=== PATIENT | male | born 1960 | race Caucasian/White ===

== ENCOUNTER → 2017-06-23 | Outpatient (CLI) | payer BC ==
--- NOTE | 2017-07-01 09:21 | P.ARTDOP ---
Arterial Doppler LOWER EXTREMITY ARTERIAL DOPPLER: DATE OF SERVICE: 06/23/2017 Reason for study: Left leg pain. Doppler waveforms: Multiphasic bilaterally throughout. Pulse volume recording: Normal configuration. Pressure gradients: None. Ankle-brachial indices: Greater than 1 bilaterally. Toe pressures: 96 on the right, 87 on the left Impression: Normal study.
== END | disposition home or self-care (01) ==
LOC: RADUSWWP 07:32
PROVIDERS: ATTEND Internal Medicine
DX: M79.669 Pain in unspecified lower leg (principal)
CPT/HCPCS: 93923

== ENCOUNTER 2018-01-26 11:35 | Inpatient (IN) | payer BC ==
--- NOTE | 2018-01-26 12:52 | ED ---
General Adult HPI - General Chief complaint: Recheck/Abnormal Lab/Rx Stated complaint: Withdrawls, Vomiting Time Seen by Provider: 01/26/18 11:35 Source: patient, RN notes reviewed Mode of arrival: wheelchair Limitations: no limitations - History of Present Illness Initial comments: This is a 57-year-old male who presents emergency Department complaining of a headache. Patient has been weaning himself off of all of his pain medications over the last couple of weeks he is completely removed himself from those medications at this point in time. Patient comes in stating he started having headache yesterday and he woke up this morning and it was worse. Patient denies numbness or weakness. Patient denies any trauma. Patient states she's very nauseated has vomited 2 times. Patient denies any chest pain difficulty breathing or shortness of breath. Patient states she feels as though he needs to throw but can't now. Patient denies any abdominal pain patient states he does have back pain but it's no worse than his normal back pain. Patient states she's here now because of the headache and the nausea. - Related Data Home Medications Medication Instructions Recorded Confirmed Atorvastatin [Lipitor] 20 mg PO DAILY 02/09/16 01/26/18 Cholecalciferol [Vitamin D3] 2,000 units PO DAILY 02/09/16 01/26/18 Lisinopril-Hctz 20-12.5 mg 1 tab PO DAILY 02/09/16 01/26/18 [Zestoretic 20-12.5] Pantoprazole [Protonix] 40 mg PO DAILY 02/09/16 01/26/18 Rivaroxaban [Xarelto] 20 mg PO DAILY 02/09/16 01/26/18 clonazePAM [KlonoPIN] 0.5 mg PO DAILY 02/09/16 01/26/18 Naloxegol Oxalate [Movantik] 25 mg PO DAILY 01/26/18 01/26/18 Allergies Allergy/AdvReac Type Severity Reaction Status Date / Time morphine Allergy Unknown Unknown Verified 01/26/18 12:59 Review of Systems ROS Statement: Those systems with pertinent positive or pertinent negative responses have been documented in the HPI. ROS Other: All systems not noted in ROS Statement are negative. Past Medical History Past Medical History: Deep Vein Thrombosis (DVT), Hyperlipidemia, Hypertension Additional Past Medical History / Comment(s): Back problems History of Any Multi-Drug Resistant Organisms: None Reported Additional Past Surgical History / Comment(s): Back surgery x2 () Hx blood clot x2 () Past Anesthesia/Blood Transfusion Reactions: No Reported Reaction Past Psychological History: No Psychological Hx Reported Smoking Status: Former smoker Past Alcohol Use History: Rare Past Drug Use History: Opiates - Past Family History Father Family Medical History: Deep Vein Thrombosis (DVT) Additional Family Medical History / Comment(s): Triple Bypass in 2011 General Exam - General Exam Comments Initial Comments: GENERAL: Patient is well-developed and well-nourished. Patient is nontoxic and well- hydrated and is in moderate distress. ENT: Neck is soft and supple. No significant lymphadenopathy is noted. Oropharynx is clear. Moist mucous membranes. Neck has full range of motion without eliciting any pain. EYES: The sclera were anicteric and conjunctiva were pink and moist. Extraocular movements were intact and pupils were equal round and reactive to light. Eyelids were unremarkable. PULMONARY: Unlabored respirations. Good breath sounds bilaterally. No audible rales rhonchi or wheezing was noted. CARDIOVASCULAR: There is a regular rate and rhythm without any murmurs gallops or rubs. ABDOMEN: Soft and nontender with normal bowel sounds. No palpable organomegaly was noted. There is no palpable pulsatile mass. SKIN: Skin is clear with no lesions or rashes and otherwise unremarkable. NEUROLOGIC: Patient is alert and oriented x3. Cranial nerves II through XII are grossly intact. Motor and sensory are also intact. Normal speech, volume and content. Symmetrical smile. MUSCULOSKELETAL: Normal extremities with adequate strength and full range of motion. No lower extremity swelling or edema. No calf tenderness. LYMPHATICS: No significant lymphadenopathy is noted PSYCHIATRIC: Normal psychiatric evaluation. Limitations: no limitations Course Vital Signs 01/26/18 01/26/18 11:37 14:30 Temperature 98.1 F Pulse Rate 78 66 Respiratory 20 16 Rate Blood Pressure 109/89 144/66 O2 Sat by Pulse 98 99 Oximetry Medical Decision Making - Medical Decision Making EKG shows normal sinus rhythm at 68 bpm OH interval 186 QRS 102 QT intervals 46 QTC is 431. Patient's EKG shows no ST segment elevation or depression or T wave abnormalities are noted. CT of the brain shows no acute abnormality. Patient continues to be nauseated and vomiting occasionally and is a mild headache at this point time. I spoke with Dr. Grider he agreed to admit the patient for 23 hour observation. - Lab Data Result diagrams: 01/26/18 12:34 01/26/18 12:34 Lab Results 01/26/18 01/26/18 Range/Units 12:34 12:34 WBC 11.9 H (3.8-10.6) k/uL RBC 5.15 (4.30-5.90) m/uL Hgb 15.0 (13.0-17.5) gm/dL Hct 44.1 (39.0-53.0) % MCV 85.7 (80.0-100.0) fL MCH 29.2 (25.0-35.0) pg MCHC 34.1 (31.0-37.0) g/dL RDW 13.4 (11.5-15.5) % Plt Count 286 (150-450) k/uL Neutrophils % 83 % Lymphocytes % 12 % Monocytes % 4 % Eosinophils % 1 % Basophils % 0 % Neutrophils # 9.9 H (1.3-7.7) k/uL Lymphocytes # 1.4 (1.0-4.8) k/uL Monocytes # 0.4 (0-1.0) k/uL Eosinophils # 0.1 (0-0.7) k/uL Basophils # 0.0 (0-0.2) k/uL Sodium 137 (137-145) mmol/L Potassium 4.1 (3.5-5.1) mmol/L Chloride 101 (98-107) mmol/L Carbon Dioxide 22 (22-30) mmol/L Anion Gap 14 mmol/L BUN 7 L (9-20) mg/dL Creatinine 0.82 (0.66-1.25) mg/dL Est GFR (CKD-EPI)AfAm >90 (>60 ml/min/1.73 sqM) Est GFR (CKD-EPI)NonAf >90 (>60 ml/min/1.73 sqM) Glucose 112 H (74-99) mg/dL Calcium 9.9 (8.4-10.2) mg/dL Total Bilirubin 0.8 (0.2-1.3) mg/dL AST 30 (17-59) U/L ALT 29 (21-72) U/L Alkaline Phosphatase 80 (38-126) U/L Total Protein 7.8 (6.3-8.2) g/dL Albumin 4.5 (3.5-5.0) g/dL Disposition Clinical Impression: Cephalgia, Acute vomiting Disposition: ADMITTED IP TO THIS HOSP Referrals: Coco Grider MD [Primary Care Provider] - 1-2 days Time of Disposition: 16:22
[2018-01-26] MEDS ORDERED: HYDROmorphone 1 MG/ML 1 ML SYRINGE IVP STA ×2 (12:56→16:12)
[2018-01-26] MEDS: ONDANSETRON 4 MG/2 ML VIAL IVP STA ×2 (13:07→15:41)
[2018-01-26 13:14] LABS: Basophils % (A) 0 %; Eosinophils # (A) 0.1 k/uL (0-0.7); Eosinophils % (A) 1 %; HCT 44.1 % (39.0-53.0); Lymphocytes # (A) 1.4 k/uL (1.0-4.8); Lymphocytes % (A) 12 %; MCH 29.2 pg (25.0-35.0); MCHC 34.1 g/dL (31.0-37.0); MCV 85.7 fL (80.0-100.0); Mean Platelet Volume 6.9; Monocytes # (A) 0.4 k/uL (0-1.0); Monocytes % (A) 4 %; Neutrophils # (A) 9.9 k/uL (1.3-7.7); Neutrophils % (A) 83 %; Platelet Count 286 k/uL (150-450); RBC 5.15 m/uL (4.30-5.90); RDW 13.4 % (11.5-15.5); WBC 11.9 k/uL (3.8-10.6)
[2018-01-26] MEDS ORDERED: LORazepam 2 MG/ML INJ IV STA (13:22)
[2018-01-26 13:30] LABS: ALT 29 U/L (21-72); AST 30 U/L (17-59); Albumin 4.5 g/dL (3.5-5.0); Alkaline Phosphatase 80 U/L (38-126); Anion Gap 14 mmol/L; Blood Urea Nitrogen 7 mg/dL (9-20); Calcium 9.9 mg/dL (8.4-10.2); Carbon Dioxide 22 mmol/L (22-30); Chloride 101 mmol/L (98-107); Glucose 112 mg/dL (74-99); Potassium 4.1 mmol/L (3.5-5.1); Sodium 137 mmol/L (137-145); Total Bilirubin 0.8 mg/dL (0.2-1.3); Total Protein 7.8 g/dL (6.3-8.2)
--- NOTE | 2018-01-26 13:59 | CT ---
EXAMINATION TYPE: CT brain wo con DATE OF EXAM: 01/26/2018 COMPARISON: June 27, 2015 HISTORY: pain CT DLP: [address] of the brain was performed. The ventricles, basal cisterns and sulci overlying the cerebral convexities demonstrate mild enlargem ent. There is no evidence for intracranial hemorrhage or sulcal effacement. There is decreased attenuation about the periventricular white matter and deep white matter of both c erebral hemispheres, compatible with chronic small vessel ischemia. Differential diagnosis does inclu de demyelination. No mass effects are seen.No midline shift. Osseous calvarium is intact. If symptoms persist consider MRI. IMPRESSION: 1. Age related atrophic and chronic small vessel ischemic change without acute intracranial process s een at this time.
[2018-01-26] MEDS ORDERED: SODIUM CHLORIDE 0.9% 1,000 ML IV ONE ×2 (16:12→16:22)
[2018-01-26] MEDS ORDERED: LORazepam 2 MG/ML INJ IV PRN (16:24)
[2018-01-26] MEDS: HYDROcodone/APAP 5-325MG 1 EACH TAB PO PRN (18:31)
[2018-01-26] MEDS: ONDANSETRON 4 MG/2 ML VIAL IVP PRN (19:53)
[2018-01-26] MEDS: RIVAROXABAN 20 MG TAB PO SCH (19:54)
[2018-01-26] MEDS: HYDROmorphone 1 MG/ML 1 ML SYRINGE IVP PRN (22:53)
[2018-01-27] MEDS: ONDANSETRON 4 MG/2 ML VIAL IVP PRN ×2 (02:49→08:47)
[2018-01-27] MEDS: HYDROcodone/APAP 5-325MG 1 EACH TAB PO PRN ×3 (02:49→21:47)
[2018-01-27] MEDS: HYDROmorphone 1 MG/ML 1 ML SYRINGE IVP PRN ×2 (06:39→11:57)
[2018-01-27] MEDS ORDERED: ACETAMINOPHEN TAB 325 MG TAB PO PRN (08:41)
[2018-01-27] MEDS: PANTOPRAZOLE 40 MG TABLET PO SCH (08:49)
[2018-01-27] MEDS: LISINOPRIL-HCTZ 20-12.5 MG 1 EACH TAB PO SCH (08:50)
[2018-01-27] MEDS: RIVAROXABAN 20 MG TAB PO SCH (08:50)
[2018-01-27] MEDS: CHOLECALCIFEROL 1,000 UNIT TAB PO SCH (08:50)
[2018-01-27] MEDS: ATORVASTATIN 20 MG TAB PO SCH (08:51)
[2018-01-27] MEDS: clonazePAM 0.5 MG TAB PO SCH (08:51)
[2018-01-27] MEDS ORDERED: SCOPOLAMINE 1.5MG/72HR PATCH TRANSDERM ONE (11:45)
--- NOTE | 2018-01-27 13:47 | P.HPIM ---
History of Present Illness H&P Date: 01/27/18 Chief Complaint: Headache, vomiting This is a 57-year-old male patient of Dr. Grider with past history of chronic back pain with chronic use of Suboxone, DVT, hyperlipidemia, hypertension. Patient follows with pain clinic at [facility] and is currently on tapering dose to wean off Suboxone. He states that on Friday he wasn't feeling great and on Friday he felt worse but by yesterday he had a splitting headache along with nausea and vomiting. He states he feels like he is going to dehydration which she has had in the past. He came into [facility] emergency center for evaluation. He was given 2 L of IV fluid, IV Dilaudid and admitted to the observation unit where he was continued on IV Dilaudid and [place] along with Zofran. His home medications were resumed. Patient continued to have significant headache. He states pain medication last for about an hour to an hour and a half and he can sleep for about 20-30 minutes but then he wakes up and he has hiccups, nausea and headache. Scopolamine patch will be ordered. Patient will be monitored until he is able to maintain food and fluids without emesis. IV fluids will be switched to D5 half-normal saline with KCl. Review of Systems All systems: negative Constitutional: Reports fatigue, Reports poor appetite, Reports weakness, Denies chills, Denies fever, Denies lethargy, Denies malaise, Denies weight loss Eyes: denies blurred vision, denies pain Ears, nose, mouth and throat: Reports headache, Denies dysphagia, Denies sore throat, Denies vertigo Cardiovascular: Denies chest pain, Denies decreased exercise tolerance, Denies dyspnea on exertion, Denies edema, Denies leg edema, Denies lightheadedness, Denies shortness of breath, Denies syncope Respiratory: Denies cough, Denies cough with sputum, Denies dyspnea, Denies excessive sputum, Denies hemoptysis, Denies home oxygen, Denies wheezing Gastrointestinal: Reports loss of appetite, Reports nausea, Reports vomiting, Denies abdominal pain, Denies diarrhea, Denies melena Genitourinary: Denies dysuria, Denies urinary retention Musculoskeletal: Reports low back pain, Denies frequent falls, Denies myalgias Integumentary: Denies pruritus, Denies rash, Denies wounds Neurological: Denies numbness, Denies weakness Psychiatric: Denies anxiety, Denies depression Endocrine: Denies fatigue, Denies weight change Past Medical History Past Medical History: Deep Vein Thrombosis (DVT), Hyperlipidemia, Hypertension Additional Past Medical History / Comment(s): Chronic back pain and follows with [facility] pain clinic History of Any Multi-Drug Resistant Organisms: None Reported Additional Past Surgical History / Comment(s): Back surgery x3 (1989/1993/2016) Hx blood clot x2 (), temporary [place] filter placement and removal Past Anesthesia/Blood Transfusion Reactions: No Reported Reaction Past Psychological History: No Psychological Hx Reported Smoking Status: Former smoker Past Alcohol Use History: Rare Additional Past Alcohol Use History / Comment(s): She was a smoker of a pack per day for 11 years. He denies any medical marijuana, marijuana, street drug use. He drinks alcohol very rarely. He lives at home with his family. Past Drug Use History: Opiates - Past Family History Father Family Medical History: Deep Vein Thrombosis (DVT) Additional Family Medical History / Comment(s): Father is alive at age 83 with history of hypertension and coronary artery disease status post triple vessel CABG in 2011. Mother Additional Family Medical History / Comment(s): Mother is alive at age 79 with no major medical problems. Brother(s) Additional Family Medical History / Comment(s): Patient has 1 sister with no major medical problems. Patient does not have any brothers. Daughter(s) Additional Family Medical History / Comment(s): Patient has 4 children and 3 are healthy with no major medical problems. One daughter at age 22 has hypertension, fibromyalgia, chronic lymphedema, gastroesophageal reflux disease , irritable bowel syndrome, chronic back pain status post 2 back surgeries. Medications and Allergies Home Medications Medication Instructions Recorded Confirmed Type Atorvastatin [Lipitor] 20 mg PO DAILY 02/09/16 01/26/18 History Cholecalciferol [Vitamin D3] 2,000 units PO DAILY 02/09/16 01/26/18 History Lisinopril-Hctz 20-12.5 mg 1 tab PO DAILY 02/09/16 01/26/18 History [Zestoretic 20-12.5] Pantoprazole [Protonix] 40 mg PO DAILY 02/09/16 01/26/18 History Rivaroxaban [Xarelto] 20 mg PO DAILY 02/09/16 01/26/18 History clonazePAM [KlonoPIN] 0.5 mg PO DAILY 02/09/16 01/26/18 History Naloxegol Oxalate [Movantik] 25 mg PO DAILY 01/26/18 01/26/18 History HYDROcodone/APAP 5-325MG [[place] 1 tab PO Q6HR PRN 3 Days #12 tab 01/27/18 Rx 5-325] Allergies Allergy/AdvReac Type Severity Reaction Status Date / Time morphine Allergy Unknown Unknown Verified 01/26/18 12:59 Physical Exam Vitals: Vital Signs Temp Pulse Pulse Resp BP BP Pulse Ox 01/27/18 07:43 98.5 F 67 16 148/68 93 L 01/27/18 03:19 77 16 01/27/18 00:00 79 16 01/26/18 23:29 98.7 F 75 16 149/70 97 01/26/18 20:00 72 18 01/26/18 19:42 98.4 F 73 18 173/73 96 01/26/18 18:38 68 18 01/26/18 17:40 98.0 F 68 18 166/74 99 01/26/18 17:30 98.5 F 70 18 139/65 96 01/26/18 17:29 98.3 F 01/26/18 17:11 82 16 138/95 99 01/26/18 14:30 66 16 144/66 99 01/26/18 11:37 98.1 F 78 20 109/89 98 Intake and Output 01/26/18 01/27/18 01/27/18 22:59 06:59 14:59 Other: Voiding Method Toilet Toilet # Voids 1 Weight 120.2 kg 120.2 kg Gen: This is a 57-year-old male patient. He is in bed and appears to be somewhat uncomfortable. HEENT: Head is atraumatic, normocephalic. Pupils equal, round. Sclerae is anicteric. NECK: Supple. No JVD. No lymphadenopathy. No thyromegaly. LUNGS: Clear to auscultation. No wheezes or rhonchi. No intercostal retractions. HEART: Regular rate and rhythm. No murmur. ABDOMEN: Soft. Bowel sounds are present. No masses. No tenderness. EXTREMITIES: No pedal edema. No calf tenderness. NEUROLOGICAL: Patient is awake, alert and oriented x3. Cranial nerves 2 through 12 are grossly intact. Results CBC & Chem 7: 01/26/18 12:34 18 12:34 Labs: Abnormal Lab Results - Last 24 Hours (Table) 01/26/18 01/26/18 Range/Units 12:34 12:34 WBC 11.9 H (3.8-10.6) k/uL Neutrophils # 9.9 H (1.3-7.7) k/uL BUN 7 L (9-20) mg/dL Glucose 112 H (74-99) mg/dL Thrombosis Risk Factor Assmnt - DVT/VTE Prophylaxis DVT/VTE Prophylaxis: Pharmacologic Prophylaxis ordered - Choose All That Apply Any of the Below Risk Factors Present?: Yes Each Factor Represents 1 point: Age 41-60 years, Obesity (BMI >25), Swollen legs (current) Other Risk Factors: Yes Each Risk Factor Represents 3 Points: History of DVT/PE Thrombosis Risk Factor Assessment Total Risk Factor Score: 6 Thrombosis Risk Factor Assessment Level: High Risk Assessment and Plan Plan: 1. Intractable headache, vomiting, hiccups secondary to withdrawal from Suboxone. Continue Dilaudid 1 mg IM every 4 hours as needed and [place] 5 one every 6 hours as needed, Zofran for nausea, scopolamine patch ordered, diet as tolerated. 2. Dehydration secondary to intractable vomiting. Patient will be placed on IV fluids of D5 and half-normal saline with 20 mEq of KCl at 100 mL per hour. Patient is status post 2 L of IV fluid. 3. History of DVT. Continue Xarelto 20 mg daily. 4. Hypertension. Continue lisinopril/hydrochlorothiazide 1 daily. 5. Hyperlipidemia. Continue atorvastatin 20 mg daily. 6. GERD and GI prophylaxis. Protonix. 7. DVT prophylaxis. Xarelto. Patient placed on the observation unit. Discharge plan: Return home Impression and plan of care have been directed as dictated by the signing physician. Lori Christy nurse practitioner acting as scribe for signing physician.
[2018-01-27] MEDS: D5-0.45% NACL WITH KCL 20MEQ/L 1,000 ML IV SCH (14:34)
[2018-01-28] MEDS: ONDANSETRON 4 MG/2 ML VIAL IVP PRN ×3 (00:02→10:43)
[2018-01-28] MEDS: HYDROmorphone 1 MG/ML 1 ML SYRINGE IVP PRN ×5 (00:03→23:44)
[2018-01-28] MEDS: D5-0.45% NACL WITH KCL 20MEQ/L 1,000 ML IV SCH ×3 (04:30→20:03)
[2018-01-28] MEDS: CHOLECALCIFEROL 1,000 UNIT TAB PO SCH (08:38)
[2018-01-28] MEDS: RIVAROXABAN 20 MG TAB PO SCH (08:39)
[2018-01-28] MEDS: HYDROcodone/APAP 5-325MG 1 EACH TAB PO PRN (08:39)
[2018-01-28] MEDS: ATORVASTATIN 20 MG TAB PO SCH (08:40)
[2018-01-28] MEDS: PANTOPRAZOLE 40 MG TABLET PO SCH (08:40)
[2018-01-28] MEDS: LISINOPRIL-HCTZ 20-12.5 MG 1 EACH TAB PO SCH (08:40)
[2018-01-28] MEDS: clonazePAM 0.5 MG TAB PO SCH (08:40)
[2018-01-28] MEDS ORDERED: SODIUM CHLORIDE 0.9% 1,000 ML IV SCH (11:00)
--- NOTE | 2018-01-28 12:37 | P.PN ---
Subjective Progress Note Date: 01/28/18 This is a 57-year-old male patient of Dr. Grider with past history of chronic back pain with chronic use of Suboxone, DVT, hyperlipidemia, hypertension. Patient follows with pain clinic at [facility] and is currently on tapering dose to wean off Suboxone. He states that on Friday he wasn't feeling great and on Friday he felt worse but by yesterday he had a splitting headache along with nausea and vomiting. He states he feels like he is going to dehydration which she has had in the past. He came into [facility] emergency center for evaluation. He was given 2 L of IV fluid, IV Dilaudid and admitted to the observation unit where he was continued on IV Dilaudid and [place] along with Zofran. His home medications were resumed. Patient continued to have significant headache. He states pain medication last for about an hour to an hour and a half and he can sleep for about 20-30 minutes but then he wakes up and he has hiccups, nausea and headache. Scopolamine patch will be ordered. Patient will be monitored until he is able to maintain food and fluids without emesis. IV fluids will be switched to D5 half-normal saline with KCl. 01/28: Patient did well yesterday afternoon then had episodes of vomiting last evening it changes shift and again this morning he is having vomiting and hiccuping. He states his abdomen is sore from belching but no abdominal pain. Protonix will be switched to IV and twice daily and IV fluids increased 150 mL per hour. Consult added for GI and pain management to evaluate. Patient is continued on IV Dilaudid and oral [place]. Objective - Vital Signs Vital signs: Vital Signs Temp 98.3 F 01/28/18 07:35 Pulse 52 L 01/28/18 07:35 Resp 16 01/28/18 07:35 BP 121/74 01/28/18 07:35 Pulse Ox 95 01/28/18 07:35 Intake & Output 01/27/18 01/28/18 01/28/18 18:59 06:59 18:59 Weight 120.2 kg Other: Voiding Method Toilet Toilet # Voids 1 - Exam Gen: This is a 57-year-old male patient. He is in bed and appears to be somewhat uncomfortable. HEENT: Head is atraumatic, normocephalic. Pupils equal, round. Sclerae is anicteric. NECK: Supple. No JVD. No lymphadenopathy. No thyromegaly. LUNGS: Clear to auscultation. No wheezes or rhonchi. No intercostal retractions. HEART: Regular rate and rhythm. No murmur. ABDOMEN: Soft. Bowel sounds are present. No masses. No tenderness. EXTREMITIES: No pedal edema. No calf tenderness. NEUROLOGICAL: Patient is awake, alert and oriented x3. Cranial nerves 2 through 12 are grossly intact. - Labs CBC & Chem 7: 01/26/18 12:34 01/26/18 12:34 Assessment and Plan Plan: 1. Intractable headache, vomiting, hiccups secondary to withdrawal from Suboxone. Continue Dilaudid 1 mg IM every 4 hours as needed and [place] 5 one every 6 hours as needed, Zofran for nausea, scopolamine patch ordered, diet as tolerated. Consults admitted for GI and pain management. 2. Dehydration secondary to intractable vomiting. IV fluids of D5 and half- normal saline with 20 mEq of KCl will be increased 250 mL per hour. Patient is status post 2 L of IV fluid. 3. History of DVT. Continue Xarelto 20 mg daily. 4. Hypertension. Continue lisinopril/hydrochlorothiazide 1 daily. 5. Hyperlipidemia. Continue atorvastatin 20 mg daily. 6. GERD and GI prophylaxis. Protonix. 7. DVT prophylaxis. Xarelto. Patient admitted to the hospital for a minimum of 2 night stay. Discharge plan: Return home Impression and plan of care have been directed as dictated by the signing physician. Lori Christy nurse practitioner acting as scribe for signing physician.
[2018-01-28] MEDS ORDERED: PROCHLORPERAZINE SUPPOSITORY 25 MG SUPP RECTAL PRN (14:19)
--- NOTE | 2018-01-28 16:24 | P.CONS ---
History of Present Illness - Reason for Consult Consult date: 01/28/18 Nausea and vomiting Requesting physician: Coco Grider - Chief Complaint Headache, nausea, vomiting, hiccups - History of Present Illness A 57-year-old male with no medical history significant for hypertension, prior DVT, and opioid dependence who recently completed a withdrawal program through the [facility] who presents to the hospital with complaints of intractable nausea and vomiting, headache and hiccups. The patient reports that the symptoms began after the Suboxone was stopped and that they have intensified over the past 3-4 days prompting the patient to seek medical health counselor as he was concerned he would become dehydrated. The patient has had multiple episodes of nausea with retching and occasional production of vomit. No hematemesis reported. Patient has abdominal pain in relation to his retching. He also reports a terrible headache which was evaluated with a computed tomography scan which was essentially negative for any acute process. The patient has had similar symptoms of nausea and vomiting in the past which time he was treated with PPI therapy. No hematochezia or melena reported. The patient had lab evaluation which was significant for a normal CBC, normal BMP and normal liver enzymes. Review of Systems REVIEW OF SYSTEMS: CARDIOPULMONARY: Denies chest pain or shortness of breath. GENITOURINARY: No dysuria or hematuria. MUSCULOSKELETAL: No focal weakness reported. SKIN: Denies any new rashes or lesions, jaundice or pallor. PSYCHIATRIC: Denies any depression or anxiety. NEUROLOGY: Denies any new focal deficits however the patient has been having terrible headache. EARS: No tinnitus, discharge or new hearing loss. NOSE: No discharge or congestion. EYES: No pain in eyes or change in vision. CONSTITUTIONAL: No recent weight loss. No fever, chills, night sweats. Past Medical History Past Medical History: Deep Vein Thrombosis (DVT), Hyperlipidemia, Hypertension Additional Past Medical History / Comment(s): Chronic back pain and follows with [facility] pain clinic History of Any Multi-Drug Resistant Organisms: None Reported Additional Past Surgical History / Comment(s): Back surgery x3 (1989/1993/2016) Hx blood clot x2 (), temporary [place] filter placement and removal Past Anesthesia/Blood Transfusion Reactions: No Reported Reaction Past Psychological History: No Psychological Hx Reported Smoking Status: Former smoker Past Alcohol Use History: Rare Additional Past Alcohol Use History / Comment(s): She was a smoker of a pack per day for 11 years. He denies any medical marijuana, marijuana, street drug use. He drinks alcohol very rarely. He lives at home with his family. Past Drug Use History: Opiates - Past Family History Father Family Medical History: Deep Vein Thrombosis (DVT) Additional Family Medical History / Comment(s): Father is alive at age 83 with history of hypertension and coronary artery disease status post triple vessel CABG in 2012. Mother Additional Family Medical History / Comment(s): Mother is alive at age 79 with no major medical problems. Brother(s) Additional Family Medical History / Comment(s): Patient has 1 sister with no major medical problems. Patient does not have any brothers. Daughter(s) Additional Family Medical History / Comment(s): Patient has 4 children and 3 are healthy with no major medical problems. One daughter at age 22 has hypertension, fibromyalgia, chronic lymphedema, gastroesophageal reflux disease , irritable bowel syndrome, chronic back pain status post 2 back surgeries. Medications and Allergies Home Medications Medication Instructions Recorded Confirmed Type Atorvastatin [Lipitor] 20 mg PO DAILY 02/09/16 01/26/18 History Cholecalciferol [Vitamin D3] 2,000 units PO DAILY 02/09/16 01/26/18 History Lisinopril-Hctz 20-12.5 mg 1 tab PO DAILY 02/09/16 01/26/18 History [Zestoretic 20-12.5] Pantoprazole [Protonix] 40 mg PO DAILY 02/09/16 01/26/18 History Rivaroxaban [Xarelto] 20 mg PO DAILY 02/09/16 01/26/18 History clonazePAM [KlonoPIN] 0.5 mg PO DAILY 02/09/16 01/26/18 History Naloxegol Oxalate [Movantik] 25 mg PO DAILY 01/26/18 01/26/18 History HYDROcodone/APAP 5-325MG [[place] 1 tab PO Q6HR PRN 3 Days #12 tab 01/27/18 Rx 5-325] Allergies Allergy/AdvReac Type Severity Reaction Status Date / Time morphine Allergy Unknown Unknown Verified 01/26/18 12:59 Physical Exam Vitals: Vital Signs Temp Pulse Resp BP Pulse Ox 01/28/18 15:58 98.4 F 59 L 16 148/70 96 01/28/18 07:35 98.3 F 52 L 16 121/74 95 01/28/18 04:00 16 01/28/18 00:00 98.6 F 65 16 160/71 98 01/27/18 20:00 16 Intake and Output 01/28/18 01/28/18 01/28/18 06:59 14:59 22:59 Other: Voiding Method Toilet Toilet # Voids 1 Weight 120.2 kg On physical examination, patient appears uncomfortable. HEAD: Normocephalic, atraumatic. EYES: No scleral icterus. No conjunctival injection. MOUTH: No lesions, tongue midline. NECK: Trachea midline, no gross abnormalities. CHEST: Clear to auscultation with no wheezing or rhonchi appreciated. HEART: Regular rate and rhythm. ABDOMEN: Soft, obese. Bowel sounds are positive. No organomegaly. No guarding or rigidity. EXTREMITIES: No pedal edema. SKIN: No rashes, no jaundice. NEUROLOGIC: Alert and oriented x3. No focal deficits. Results CBC & Chem 7: 01/26/18 12:34 01/26/18 12:34 Assessment and Plan (1) Nausea & vomiting Narrative/Plan: Acute episode of nausea and vomiting with associated headache and hiccups after completing withdrawal program from Suboxone dependence. His likely that the patient's symptoms are secondary to opioid withdrawal given the temporal relationship with stopping opioids and the development of these acute symptoms. Other etiology such as gastroenteritis, peptic ulcer disease, esophagitis/ gastritis or other pathology is possible however less likely. Current Visit: Yes Status: Acute Code(s): R11.2 - NAUSEA WITH VOMITING, UNSPECIFIED SNOMED Code(s): 08733365 Plan: Supportive care Okay for diet as tolerated Continue IV hydration We'll make Zofran around the clock Will add Compazine as needed rectally if the patient is unable to tolerate oral antiemetics Continue Protonix twice a day No plan for endoscopy at this time, can consider if the patient's symptoms persist. However it should be noted that opioid withdrawal symptoms can manifest weeks after withdrawal has occurred. Thank you for allowing us to proceed in the care of this patient we will continue to follow
[2018-01-28] MEDS: ONDANSETRON 4 MG/2 ML VIAL IVP SCH ×2 (17:40→23:44)
[2018-01-28] MEDS: PANTOPRAZOLE 40 MG/10 ML VIAL IVP SCH (20:02)
[2018-01-29] MEDS: D5-0.45% NACL WITH KCL 20MEQ/L 1,000 ML IV SCH ×4 (01:50→23:00)
[2018-01-29] MEDS: HYDROmorphone 1 MG/ML 1 ML SYRINGE IVP PRN ×4 (03:59→23:26)
[2018-01-29] MEDS: ONDANSETRON 4 MG/2 ML VIAL IVP SCH ×3 (05:34→19:35)
[2018-01-29 07:11] LABS: Basophils % (A) 0 %; Eosinophils % (A) 0 %; HCT 43.3 % (39.0-53.0); Lymphocytes # (A) 1.8 k/uL (1.0-4.8); Lymphocytes % (A) 22 %; MCH 28.7 pg (25.0-35.0); MCHC 32.3 g/dL (31.0-37.0); MCV 88.9 fL (80.0-100.0); Mean Platelet Volume 6.1; Monocytes # (A) 0.4 k/uL (0-1.0); Monocytes % (A) 5 %; Neutrophils # (A) 5.9 k/uL (1.3-7.7); Neutrophils % (A) 71 %; Platelet Count 233 k/uL (150-450); RBC 4.87 m/uL (4.30-5.90); RDW 13.4 % (11.5-15.5); WBC 8.2 k/uL (3.8-10.6)
[2018-01-29 07:27] LABS: ALT 21 U/L (21-72); AST 20 U/L (17-59); Albumin 3.6 g/dL (3.5-5.0); Alkaline Phosphatase 50 U/L (38-126); Anion Gap 8 mmol/L; Blood Urea Nitrogen 5 mg/dL (9-20); Carbon Dioxide 30 mmol/L (22-30); Chloride 101 mmol/L (98-107); Glucose 113 mg/dL (74-99); Lipase 89 U/L (23-300); Potassium 4.5 mmol/L (3.5-5.1); Sodium 139 mmol/L (137-145); Total Bilirubin 0.4 mg/dL (0.2-1.3); Total Protein 6.5 g/dL (6.3-8.2)
[2018-01-29] MEDS: clonazePAM 0.5 MG TAB PO SCH (09:28)
[2018-01-29] MEDS: RIVAROXABAN 20 MG TAB PO SCH (09:28)
[2018-01-29] MEDS: LISINOPRIL-HCTZ 20-12.5 MG 1 EACH TAB PO SCH (09:28)
[2018-01-29] MEDS: ATORVASTATIN 20 MG TAB PO SCH (09:28)
[2018-01-29] MEDS: CHOLECALCIFEROL 1,000 UNIT TAB PO SCH (09:28)
[2018-01-29] MEDS: PANTOPRAZOLE 40 MG/10 ML VIAL IVP SCH ×2 (09:28→19:35)
--- NOTE | 2018-01-29 12:31 | P.PN ---
Subjective Progress Note Date: 01/29/18 Principal diagnosis: Nausea vomiting 57-year-old male complaining of withdrawal program for Suboxone dependence. Reevaluated in regards to nausea vomiting. Still experiencing dry heaves nausea. White count 8.2. Hemoglobin 14.0. Objective - Vital Signs Vital signs: Vital Signs Temp 98.2 F 01/29/18 07:20 Pulse 57 L 01/29/18 07:20 Resp 18 01/29/18 07:20 BP 94/56 01/29/18 07:20 Pulse Ox 97 01/29/18 07:20 Intake & Output 01/28/18 01/29/18 01/29/18 18:59 06:59 18:59 Intake Total 120 Balance 120 Intake: Oral 120 Other: Voiding Method Toilet Toilet - Exam General appearance: The patient is alert, oriented, in no acute distress. HET: Head is normocephalic and atraumatic. Pupils are equal and reactive. Oropharynx is clear without lesions. Neck: Supple without lymphadenopathy. Trachea midline. Heart: S1 S2. Regular rate and rhythm. Lungs: No crackles or wheezes are heard. Abdomen: Soft, nontender, nondistended with bowel sounds. No peritoneal signs. No palpable organomegaly or masses. Extremities: Normal skin color and turgor. No cyanosis, rash, ulceration, clubbing, or edema. Radial and pedal pulses are 2/4 bilaterally. Neurological: No focal deficits. Strength and sensation are grossly intact. - Labs CBC & Chem 7: 01/29/18 06:32 01/29/18 06:32 Labs: Abnormal Lab Results - Last 24 Hours (Table) 01/29/18 Range/Units 06:32 BUN 5 L (9-20) mg/dL Glucose 113 H (74-99) mg/dL Assessment and Plan (1) Nausea & vomiting Current Visit: Yes Status: Acute Code(s): R11.2 - NAUSEA WITH VOMITING, UNSPECIFIED SNOMED Code(s): 76946228 Plan: 1. Supportive care. Diet as tolerated. Continue with antinausea medications. No plans for inpatient endoscopy at this time. We'll continue to follow. Assessment and plan a care discussed with Dr. Hebert
--- NOTE | 2018-01-29 13:13 | P.PN ---
Subjective Progress Note Date: 01/29/18 This is a 57-year-old male patient of Dr. Grider with past history of chronic back pain with chronic use of Suboxone, DVT, hyperlipidemia, hypertension. Patient follows with pain clinic at [facility] and is currently on tapering dose to wean off Suboxone. He states that on Friday he wasn't feeling great and on Friday he felt worse but by yesterday he had a splitting headache along with nausea and vomiting. He states he feels like he is going to dehydration which she has had in the past. He came into [facility] emergency center for evaluation. He was given 2 L of IV fluid, IV Dilaudid and admitted to the observation unit where he was continued on IV Dilaudid and [place] along with Zofran. His home medications were resumed. Patient continued to have significant headache. He states pain medication last for about an hour to an hour and a half and he can sleep for about 20-30 minutes but then he wakes up and he has hiccups, nausea and headache. Scopolamine patch will be ordered. Patient will be monitored until he is able to maintain food and fluids without emesis. IV fluids will be switched to D5 half-normal saline with KCl. 01/28: Patient did well yesterday afternoon then had episodes of vomiting last evening it changes shift and again this morning he is having vomiting and hiccuping. He states his abdomen is sore from belching but no abdominal pain. Protonix will be switched to IV and twice daily and IV fluids increased 150 mL per hour. Consult added for GI and pain management to evaluate. Patient is continued on IV Dilaudid and oral [place]. 01/29: Patient continues to have nausea and vomiting/dry heaves. He has been seen by GI with recommendations for supportive care and continue antinausea medications. No plan for any endoscopy. Rectal Compazine ordered. A second scopolamine patch to be obtained in the morning. Case discussed with Dr. Violeta Gonzalez with recommendations to contact psychiatry for Suboxone prescription. Dr. Jenkins, psychiatrist, will not provide prescription for Suboxone. Objective - Vital Signs Vital signs: Vital Signs Temp 98.2 F 01/29/18 07:20 Pulse 57 L 01/29/18 07:20 Resp 18 01/29/18 07:20 BP 94/56 01/29/18 07:20 Pulse Ox 97 01/29/18 07:20 Intake & Output 01/28/18 01/29/18 01/29/18 18:59 06:59 18:59 Intake Total 120 Balance 120 Intake: Oral 120 Other: Voiding Method Toilet Toilet - Exam Gen: This is a 57-year-old male patient. He is in bed and appears to be somewhat uncomfortable. HEENT: Head is atraumatic, normocephalic. Pupils equal, round. Sclerae is anicteric. NECK: Supple. No JVD. No lymphadenopathy. No thyromegaly. LUNGS: Clear to auscultation. No wheezes or rhonchi. No intercostal retractions. HEART: Regular rate and rhythm. No murmur. ABDOMEN: Soft. Bowel sounds are present. No masses. No tenderness. EXTREMITIES: No pedal edema. No calf tenderness. NEUROLOGICAL: Patient is awake, alert and oriented x3. Cranial nerves 2 through 12 are grossly intact. - Labs CBC & Chem 7: 01/29/18 06:32 01/29/18 06:32 Labs: Abnormal Lab Results - Last 24 Hours (Table) 01/29/18 Range/Units 06:32 BUN 5 L (9-20) mg/dL Glucose 113 H (74-99) mg/dL Assessment and Plan Plan: 1. Intractable headache, vomiting, hiccups secondary to withdrawal from Suboxone. Continue Dilaudid 1 mg IM every 4 hours as needed and [place] 5 one every 6 hours as needed, Zofran for nausea, scopolamine patch ordered, rectal Compazine, soft diet . Consults admitted for GI and pain management. 2. Dehydration secondary to intractable vomiting. IV fluids of D5 and half- normal saline with 20 mEq of KCl will be increased 250 mL per hour. Patient is status post 2 L of IV fluid. 3. History of DVT. Continue Xarelto 20 mg daily. 4. Hypertension. Continue lisinopril/hydrochlorothiazide 1 daily. 5. Hyperlipidemia. Continue atorvastatin 20 mg daily. 6. GERD and GI prophylaxis. Protonix. 7. DVT prophylaxis. Xarelto. Discharge plan: Return home Impression and plan of care have been directed as dictated by the signing physician. Lori Christy nurse practitioner acting as scribe for signing physician.
--- NOTE | 2018-01-29 13:50 | P.CONS ---
History of Present Illness - Reason for Consult Consult date: 01/29/18 - History of Present Illness This is 57 years old male, with a chronic history of severe low back pain, diagnosed with failed back surgery syndrome, he was on chronic use of Suboxone maintenance, the last dose of Suboxone and was taken, Friday , and he was following the instruction to wean himself off Suboxone, as per the direction of the specialist at [facility], next day after he stopped the Suboxone historically not feeling well and he started complaining of severe nausea and vomiting and he was complaining of headache, and he was admitted to [facility] because of dehydration and intractable headache and vomiting, she was started on oral [place] and IV Dilaudid, and pain management consultation was requested Past Medical History Past Medical History: Deep Vein Thrombosis (DVT), Hyperlipidemia, Hypertension Additional Past Medical History / Comment(s): Chronic back pain and follows with [facility] pain clinic History of Any Multi-Drug Resistant Organisms: None Reported Additional Past Surgical History / Comment(s): Back surgery x3 (1989/1993/2016) Hx blood clot x2 (), temporary [place] filter placement and removal Past Anesthesia/Blood Transfusion Reactions: No Reported Reaction Past Psychological History: No Psychological Hx Reported Smoking Status: Former smoker Past Alcohol Use History: Rare Additional Past Alcohol Use History / Comment(s): She was a smoker of a pack per day for 11 years. He denies any medical marijuana, marijuana, street drug use. He drinks alcohol very rarely. He lives at home with his family. Past Drug Use History: Opiates - Past Family History Father Family Medical History: Deep Vein Thrombosis (DVT) Additional Family Medical History / Comment(s): Father is alive at age 83 with history of hypertension and coronary artery disease status post triple vessel CABG in 2011. Mother Additional Family Medical History / Comment(s): Mother is alive at age 79 with no major medical problems. Brother(s) Additional Family Medical History / Comment(s): Patient has 1 sister with no major medical problems. Patient does not have any brothers. Daughter(s) Additional Family Medical History / Comment(s): Patient has 4 children and 3 are healthy with no major medical problems. One daughter at age 22 has hypertension, fibromyalgia, chronic lymphedema, gastroesophageal reflux disease , irritable bowel syndrome, chronic back pain status post 2 back surgeries. Medications and Allergies Home Medications Medication Instructions Recorded Confirmed Type Atorvastatin [Lipitor] 20 mg PO DAILY 02/09/16 01/26/18 History Cholecalciferol [Vitamin D3] 2,000 units PO DAILY 02/09/16 01/26/18 History Lisinopril-Hctz 20-12.5 mg 1 tab PO DAILY 02/09/16 01/26/18 History [Zestoretic 20-12.5] Pantoprazole [Protonix] 40 mg PO DAILY 02/09/16 01/26/18 History Rivaroxaban [Xarelto] 20 mg PO DAILY 02/09/16 01/26/18 History clonazePAM [KlonoPIN] 0.5 mg PO DAILY 02/09/16 01/26/18 History Naloxegol Oxalate [Movantik] 25 mg PO DAILY 01/26/18 01/26/18 History HYDROcodone/APAP 5-325MG [[place] 1 tab PO Q6HR PRN 3 Days #12 tab 01/27/18 Rx 5-325] Allergies Allergy/AdvReac Type Severity Reaction Status Date / Time morphine Allergy Unknown Unknown Verified 01/26/18 12:59 Physical Exam Vitals: Vital Signs Temp Pulse Resp BP Pulse Ox 01/29/18 12:00 18 01/29/18 11:00 180/77 01/29/18 07:20 98.2 F 57 L 18 94/56 97 01/29/18 03:57 16 01/29/18 00:00 16 01/28/18 23:48 97.9 F 57 L 16 159/69 97 01/28/18 20:00 16 01/28/18 16:00 16 01/28/18 15:58 98.4 F 59 L 16 148/70 96 Intake and Output 01/28/18 01/29/18 01/29/18 22:59 06:59 14:59 Intake Total 120 Balance 120 Intake: Oral 120 Other: Voiding Method Toilet Toilet Toilet Physical Examinations : 1-Constitutiona : Cooperative , not in acute distress . 2-HEENT : nech ; supple , no Lymphadenopathy , normal thyroid size . eyes : no ptosis , no icterus , no photophobia . ENT : normal of hearing , normal oropharynx , no Thrush . 3- Respiratory : Chest clear to auscultations Bilaterally , no wheezing , no Rhonchi . 4- Cardiovascular : regular rate and rhythem , S1 , S2 , no S3 , no S4. 5- Gastrointestinal : abdomen soft no tenderness , bowel sounds , no organomegally . 6- Genitourinary : Defferred . 7- neurologic : Cranial nerve II to XII intact , no focal neurological deffecit . 8-psychatric : alert , oriented X 3 , appropriate affect , intact judgment and insight . 9-Lymphatic : no Lymphadenopathy . 10- musculoskeltal : t . Lumber spine moter stegnth lower extremities ,thigh and legs 5/5 Right side , 5/5 Left side deep tendon reflexes : normal Knee Jerk , normal ankle Jerk positive lumber facet Loading Test Range of motion of the lumbar spine Flexion 30 degrees, extension 10 degrees strait leg raising test , positive at 30 degree Fabere test positive RT and positive LT . Results CBC & Chem 7: 01/29/18 06:32 01/29/18 06:32 Labs: Abnormal Lab Results - Last 24 Hours (Table) 01/29/18 Range/Units 06:32 BUN 5 L (9-20) mg/dL Glucose 113 H (74-99) mg/dL Assessment and Plan Plan: Assessment and plan= 1-Suboxone withdrawal symptoms, pateints complaining of severe headache and nausea and vomiting, Recommend restart Suboxone, personally don't have a license to prescribe Suboxone patient leaned Suboxone scalp treatment specialist Because starting opioid again, will increase risk of relapse of. opioid assictions, and there is no specialist available to give Suboxone Then maybe we could try Joaquín,,. 2-failed back surgery syndrome lumbar area/ chronic pain syndrome Time with Patient: Less than 30
[2018-01-29] MEDS: HYDROcodone/APAP 5-325MG 1 EACH TAB PO PRN (15:49)
[2018-01-30 00:15] VITALS: TEMP 98.3
[2018-01-30] MEDS: ONDANSETRON 4 MG/2 ML VIAL IVP SCH ×2 (00:22→05:55)
[2018-01-30] MEDS: HYDROmorphone 1 MG/ML 1 ML SYRINGE IVP PRN ×2 (03:18→06:49)
[2018-01-30] MEDS: D5-0.45% NACL WITH KCL 20MEQ/L 1,000 ML IV SCH ×2 (05:54→08:00)
[2018-01-30 07:45] VITALS: BP 96/65; PULSE 56; RESP 18
[2018-01-30] MEDS: ATORVASTATIN 20 MG TAB PO SCH (08:47)
[2018-01-30] MEDS: CHOLECALCIFEROL 1,000 UNIT TAB PO SCH (08:47)
[2018-01-30] MEDS: RIVAROXABAN 20 MG TAB PO SCH (08:47)
[2018-01-30] MEDS: LISINOPRIL-HCTZ 20-12.5 MG 1 EACH TAB PO SCH (08:47)
[2018-01-30] MEDS: PANTOPRAZOLE 40 MG/10 ML VIAL IVP SCH (08:48)
[2018-01-30] MEDS: clonazePAM 0.5 MG TAB PO SCH (08:48)
[2018-01-30] MEDS ORDERED: SCOPOLAMINE 1.5MG/72HR PATCH TRANSDERM ONE (09:00)
--- NOTE | 2018-01-30 15:04 | P.DS ---
Providers Date of admission: 01/28/18 12:41 Expected date of discharge: 01/30/18 Attending physician: Coco Grider Consults: 01/28/18 10:51 Consult Physician Routine Consulting Provider: Tan Hebert Consult Reason/Comments: intractable nausea and vomiting Do you want consulting provider notified?: Yes 01/28/18 10:58 Consult Physician Routine Consulting Provider: Elidia Lopez Consult Reason/Comments: withdrawal opioids Do you want consulting provider notified?: Yes Primary care physician: Coco Grider [facility] Course: This is a 57-year-old male patient of Dr. Grider with past history of chronic back pain with chronic use of Suboxone, DVT, hyperlipidemia, hypertension. Patient follows with pain clinic at [facility] and is currently on tapering dose to wean off Suboxone. He states that on Friday he wasn't feeling great and on Friday he felt worse but by yesterday he had a splitting headache along with nausea and vomiting. He states he feels like he is going to dehydration which she has had in the past. He came into [facility] emergency center for evaluation. He was given 2 L of IV fluid, IV Dilaudid and admitted to the observation unit where he was continued on IV Dilaudid and [place] along with Zofran. His home medications were resumed. Patient continued to have significant headache. He states pain medication last for about an hour to an hour and a half and he can sleep for about 20-30 minutes but then he wakes up and he has hiccups, nausea and headache. Scopolamine patch will be ordered. Patient will be monitored until he is able to maintain food and fluids without emesis. IV fluids will be switched to D5 half-normal saline with KCl. 01/28: Patient did well yesterday afternoon then had episodes of vomiting last evening it changes shift and again this morning he is having vomiting and hiccuping. He states his abdomen is sore from belching but no abdominal pain. Protonix will be switched to IV and twice daily and IV fluids increased 150 mL per hour. Consult added for GI and pain management to evaluate. Patient is continued on IV Dilaudid and oral [place]. 01/29: Patient continues to have nausea and vomiting/dry heaves. He has been seen by GI with recommendations for supportive care and continue antinausea medications. No plan for any endoscopy. Rectal Compazine ordered. A second scopolamine patch to be obtained in the morning. Case discussed with Dr. Violeta Gonzalez with recommendations to contact psychiatry for Suboxone prescription. Dr. Jenkins, psychiatrist, will not provide prescription for Suboxone. 01/30: Patient states that he has some Suboxone tablets left at home which she had stopped taking. Patient is instructed to take a half a tablet daily and call Friday for possible [place] patch. His nausea and vomiting are improved today. He did have a repeat dose of scopolamine patch applied this morning. Patient will be discharged today in stable condition Discharge diagnoses: 1. Intractable headache, vomiting, hiccups secondary to withdrawal from Suboxone. 2. Dehydration secondary to intractable vomiting. 3. History of DVT. 4. Hypertension. 5. Hyperlipidemia. 6. GERD Discharge plan: Return home Impression and plan of care have been directed as dictated by the signing physician. Lori Christy nurse practitioner acting as scribe for signing physician. Plan - Discharge Summary Discharge Rx Participant: No New Discharge Prescriptions: No Action clonazePAM [KlonoPIN] 0.5 mg PO DAILY Rivaroxaban [Xarelto] 20 mg PO DAILY Lisinopril-Hctz 20-12.5 mg [Zestoretic 20-12.5] 1 tab PO DAILY Cholecalciferol [Vitamin D3] 2,000 units PO DAILY Atorvastatin [Lipitor] 20 mg PO DAILY Pantoprazole [Protonix] 40 mg PO DAILY Naloxegol Oxalate [Movantik] 25 mg PO DAILY Discharge Medication List Atorvastatin [Lipitor] 20 mg PO DAILY 02/09/16 [History] Cholecalciferol [Vitamin D3] 2,000 units PO DAILY 02/09/16 [History] Lisinopril-Hctz 20-12.5 mg [Zestoretic 20-12.5] 1 tab PO DAILY 02/09/16 [History ] Pantoprazole [Protonix] 40 mg PO DAILY 02/09/16 [History] Rivaroxaban [Xarelto] 20 mg PO DAILY 02/09/16 [History] clonazePAM [KlonoPIN] 0.5 mg PO DAILY 02/09/16 [History] Naloxegol Oxalate [Movantik] 25 mg PO DAILY 01/26/18 [History] Follow up Appointment(s)/Referral(s): Coco Grider MD [Primary Care Provider] - 1 Week Patient Instructions/Handouts: Opioid Withdrawal (ED) Activity/Diet/Wound Care/Special Instructions: Patient will resume the Suboxone that he has at home at 1/[address] Grider on Friday. Discharge Disposition: HOME SELF-CARE
[2018-01-30] MEDS ORDERED: PANTOPRAZOLE 40 MG TABLET PO SCH (17:30)
== END 2018-01-30 11:54 | disposition home or self-care (01) | DRG 897 ==
LOC: EC 11:35 → 3OBS 16:22 → OBSVTOIN 01-28 12:41
PROVIDERS: ADMIT Internal Medicine; ATTEND Internal Medicine
DX: F11.23 Opioid dependence with withdrawal (principal); E27.40 Unspecified adrenocortical insufficiency; E78.5 Hyperlipidemia, unspecified; E86.0 Dehydration; I10 Essential (primary) hypertension; K21.9 Gastro-esophageal reflux disease without esophagitis; Z79.01 Long term (current) use of anticoagulants; Z79.899 Other long term (current) drug therapy; Z82.49 Family history of ischemic heart disease and other diseases of the circulatory system; Z86.718 Personal history of other venous thrombosis and embolism; Z87.891 Personal history of nicotine dependence; M54.5 Low back pain; G89.29 Other chronic pain
CPT/HCPCS: 36415; 70450; 80053; 82533; 83690; 85025; 93005; 96374; 96375; 96376; 99285

== ENCOUNTER → 2018-02-05 | Outpatient (CLI) | payer BC ==
--- NOTE | 2018-02-05 14:29 | US ---
EXAMINATION TYPE: US abdomen complete DATE OF EXAM: 02/05/2018 COMPARISON: Correlation CT 03/20/2013 CLINICAL HISTORY: 57-year-old male with R10.9 Abdominal Pain. TECHNIQUE: Multiple sonographic images of the abdomen are obtained. FINDINGS: EXAM MEASUREMENTS: Liver Length: 11.2 cm Gallbladder Wall: .1 cm CBD: 0.5 cm Spleen: 10.6 cm Right Kidney: 9.5 x 5.5 x 5.6 cm Left Kidney: 10.6 x 5.9 x 4.7 cm Dust Mop Maker notes: Patient of large body habitus with severe overlying bowel gas, technically difficu lt and somewhat limited study. Pancreas: Obscured by bowel gas Liver: one intercostal acoustic window, very limited views, portions visualized wnl Gallbladder: fundal portion obscured, wnl as seen Evidence for sonographic Nair's sign: no CBD: very limited visualization, wnl as seen Spleen: scattered echogenic foci suggesting calcified granulomas. Right Kidney: No hydronephrosis. Left Kidney: lobular contour, area measured as possible mass vs very lobular contour, measures 1.8 x 1.7 x 2.3cm . The latter is favored especially when correlating with the patient's 2012 CT. Short i nterval follow-up recommended. Upper IVC: wnl Abd Aorta: some portions obscured by overlying bowel gas, no AAA in visualized portions IMPRESSION: Exam limitations as above. Technically difficult study. Multiple structures were not well seen. Focal contour lobulation measuring 2.3 cm along the lateral left kidney versus mass. The former is favored especially when correlating with the 2013 CT. Six-month follow-up ultrasound recommended to ensure a stable appearance.
== END | disposition home or self-care (01) ==
LOC: RADUSMAIN 08:46
PROVIDERS: ATTEND Internal Medicine
DX: R10.9 Unspecified abdominal pain (principal)
CPT/HCPCS: 76700

== ENCOUNTER 2018-02-11 15:00 | Emergency (ER) | payer BC ==
[2018-02-11 15:12] VITALS: TEMP 97.8
[2018-02-11] MEDS ORDERED: SODIUM CHLORIDE 0.9% 1,000 ML IV STA (15:29)
[2018-02-11] MEDS ORDERED: METOCLOPRAMIDE 5 MG/ML 2 ML VIAL IVP STA (15:29)
[2018-02-11] MEDS ORDERED: LORazepam 2 MG/ML INJ IV STA (15:30)
[2018-02-11] MEDS ORDERED: diphenhydrAMINE 50 MG/ML 1 ML VIAL IVP STA (15:30)
--- NOTE | 2018-02-11 15:36 | ED ---
General Adult HPI - General Chief complaint: Nausea/Vomiting/Diarrhea Stated complaint: Nauseated, cannot sleep, vomiting Time Seen by Provider: 02/11/18 15:15 Source: patient, family, RN notes reviewed Mode of arrival: wheelchair Limitations: no limitations - History of Present Illness Initial comments: Patient is a pleasant 57-year-old male presenting to the emergency department with complaints of nausea and vomiting. Onset of symptoms was a couple of 2 and half weeks ago. No history of symptoms prior to that. Patient has recently been weaning off his pain medication for his back. Patient was in the hospital a week ago and kept for a few days. Patient has continued nausea and vomiting. Patient is restless at nighttime and is not sleeping. Patient has chills. Patient states symptoms are not as bad as they were onset however he did call his doctor today. Patient states he was told her sodium level was 1: 30. Patient has follow-up with his doctor since previous admission. Patient is also having some blurred vision. Patient at times feels off balance. Patient is having difficulty concentrating. - Related Data Home Medications Medication Instructions Recorded Confirmed Atorvastatin [Lipitor] 20 mg PO DAILY 02/09/16 02/11/18 Cholecalciferol [Vitamin D3] 2,000 units PO DAILY 02/09/16 02/11/18 Lisinopril-Hctz 20-12.5 mg 1 tab PO DAILY 02/09/16 02/11/18 [Zestoretic 20-12.5] Pantoprazole [Protonix] 40 mg PO DAILY 02/09/16 02/11/18 Rivaroxaban [Xarelto] 20 mg PO HS 02/09/16 02/11/18 Acetaminophen [Tylenol] 500 mg PO Q4H PRN 02/11/18 02/11/18 Buprenorphine HCl/Naloxone HCl 0.5 film SL DAILY 02/11/18 02/11/18 [Suboxone 2 mg-0.5 mg Sl Film] Ondansetron HCl [Zofran] 4 mg PO Q8H PRN 02/11/18 02/11/18 traZODone HCL 50 mg PO HS 02/11/18 02/11/18 Previous Rx's Medication Instructions Recorded Metoclopramide HCl [Reglan] 10 mg PO Q6HR PRN #15 tablet 02/11/18 Allergies Allergy/AdvReac Type Severity Reaction Status Date / Time morphine Allergy Unknown Unknown Verified 02/11/18 16:31 Review of Systems ROS Statement: Those systems with pertinent positive or pertinent negative responses have been documented in the HPI. ROS Other: All systems not noted in ROS Statement are negative. Constitutional: Reports: chills Eyes: Reports: vision change (Blurred vision) ENT: Reports: congestion (Occasional for a couple of hours per day) Respiratory: Denies: dyspnea Cardiovascular: Denies: chest pain Endocrine: Reports: fatigue Gastrointestinal: Reports: nausea, vomiting Genitourinary: Denies: hematuria Musculoskeletal: Reports: back pain (Chronic) Skin: Denies: rash Neurological: Reports: other (Dizziness) Past Medical History Past Medical History: Deep Vein Thrombosis (DVT), Hyperlipidemia, Hypertension Additional Past Medical History / Comment(s): Chronic back pain and follows with [facility] pain clinic History of Any Multi-Drug Resistant Organisms: None Reported Past Surgical History: Back Surgery Additional Past Surgical History / Comment(s): Back surgery x3 (1989/1993/2016) Hx blood clot x2 (), temporary Ransom filter placement and removal Past Anesthesia/Blood Transfusion Reactions: No Reported Reaction Past Psychological History: No Psychological Hx Reported Smoking Status: Former smoker Past Alcohol Use History: Rare Past Drug Use History: Opiates - Past Family History Father Family Medical History: Deep Vein Thrombosis (DVT) Additional Family Medical History / Comment(s): Father is alive at age 83 with history of hypertension and coronary artery disease status post triple vessel CABG in 2011. Mother Additional Family Medical History / Comment(s): Mother is alive at age 79 with no major medical problems. Brother(s) Additional Family Medical History / Comment(s): Patient has 1 sister with no major medical problems. Patient does not have any brothers. Daughter(s) Additional Family Medical History / Comment(s): Patient has 4 children and 3 are healthy with no major medical problems. One daughter at age 22 has hypertension, fibromyalgia, chronic lymphedema, gastroesophageal reflux disease , irritable bowel syndrome, chronic back pain status post 2 back surgeries. General Exam Limitations: no limitations General appearance: alert, in no apparent distress Head exam: Present: atraumatic Eye exam: Present: normal appearance, PERRL, EOMI. Absent: nystagmus ENT exam: Present: normal oropharynx, TM's normal bilaterally Neck exam: Present: normal inspection Respiratory exam: Present: normal lung sounds bilaterally Cardiovascular Exam: Present: regular rate, normal rhythm GI/Abdominal exam: Present: soft. Absent: tenderness Extremities exam: Present: normal inspection. Absent: pedal edema, calf tenderness Neurological exam: Present: alert, oriented X3, CN II-XII intact. Absent: motor sensory deficit Expanded Neurological exam: Present: protecting the airway Patient oriented to: Present: person, place, time Speech: Present: fluid speech Cranial nerves: EOM's Intact: Normal, Facial Sensation: Normal Cerebellar function: Finger to Nose: Normal Sensory exam: Upper Extremity Light Touch: Normal, Lower Extremity Light Touch: Normal Motor strength exam: RUE: 5, LUE: 5, RLE: 5, LLE: 5 Eye Response: (4) open spontaneously Motor Response: (6) obeys commands Verbal Response: (5) oriented Psychiatric exam: Present: normal affect, normal mood Skin exam: Present: normal color Course Vital Signs 02/11/18 02/11/18 15:07 17:44 Temperature 97.8 F Pulse Rate 73 62 Respiratory 18 17 Rate Blood Pressure 95/55 117/54 O2 Sat by Pulse 99 100 Oximetry EKG Findings - EKG Comments: EKG Findings:: Normal sinus rhythm 64. For screening AV block with a PA of 206. QRS 102. QT 390. QTC 402. Normal axis. Q wave in lead III. No acute ST change. Medical Decision Making - Medical Decision Making Patient reevaluated and is further improved. Patient states symptoms are tolerable at this time. Patient and family updated on results. Case was discussed in detail with Dr. Dupree who did not feel patient needed further evaluation or admission. She felt comfortable with discharge and recommended close follow-up with Dr. Grider, call tomorrow. Patient and family are updated with this. Patient will be prescribed Reglan to try instead of Zofran. - Lab Data Result diagrams: 02/11/18 15:45 02/11/18 15:45 Lab Results 02/11/18 02/11/18 02/11/18 Range/Units 15:45 15:45 15:45 WBC 6.7 (3.8-10.6) k/uL RBC 5.08 (4.30-5.90) m/uL Hgb 14.4 (13.0-17.5) gm/dL Hct 43.7 (39.0-53.0) % MCV 86.0 (80.0-100.0) fL MCH 28.4 (25.0-35.0) pg MCHC 33.0 (31.0-37.0) g/dL RDW 13.3 (11.5-15.5) % Plt Count 225 (150-450) k/uL Neutrophils % 54 % Lymphocytes % 38 % Monocytes % 5 % Eosinophils % 1 % Basophils % 0 % Neutrophils # 3.6 (1.3-7.7) k/uL Lymphocytes # 2.6 (1.0-4.8) k/uL Monocytes # 0.3 (0-1.0) k/uL Eosinophils # 0.1 (0-0.7) k/uL Basophils # 0.0 (0-0.2) k/uL Sodium 132 L (137-145) mmol/L Potassium 3.2 L (3.5-5.1) mmol/L Chloride 94 L (98-107) mmol/L Carbon Dioxide 24 (22-30) mmol/L Anion Gap 14 mmol/L BUN 6 L (9-20) mg/dL Creatinine 0.78 (0.66-1.25) mg/dL Est GFR (CKD-EPI)AfAm >90 (>60 ml/min/1.73 sqM) Est GFR (CKD-EPI)NonAf >90 (>60 ml/min/1.73 sqM) Glucose 109 H (74-99) mg/dL Calcium 9.5 (8.4-10.2) mg/dL Magnesium 1.5 L (1.6-2.3) mg/dL Total Bilirubin 0.4 (0.2-1.3) mg/dL AST 26 (17-59) U/L ALT 16 L (21-72) U/L Alkaline Phosphatase 48 (38-126) U/L Total Creatine Kinase 97 (55-170) U/L CK-MB (CK-2) 1.1 (0.0-2.4) ng/mL CK-MB (CK-2) Rel Index 1.1 Troponin I <0.012 (0.000-0.034) ng/mL Total Protein 7.1 (6.3-8.2) g/dL Albumin 4.2 (3.5-5.0) g/dL Amylase 93 (30-110) U/L Lipase 136 (23-300) U/L Urine Color Urine Appearance (Clear) Urine pH (5.0-8.0) Ur Specific [place] (1.001-1.035) Urine Protein (Negative) Urine Glucose (UA) (Negative) Urine Ketones (Negative) Urine Blood (Negative) Urine Nitrite (Negative) Urine Bilirubin (Negative) Urine Urobilinogen (<2.0) mg/dL Ur Leukocyte Esterase (Negative) 02/11/18 Range/Units 16:11 WBC (3.8-10.6) k/uL RBC (4.30-5.90) m/uL Hgb (13.0-17.5) gm/dL Hct (39.0-53.0) % MCV (80.0-100.0) fL MCH (25.0-35.0) pg MCHC (31.0-37.0) g/dL RDW (11.5-15.5) % Plt Count (150-450) k/uL Neutrophils % % Lymphocytes % % Monocytes % % Eosinophils % % Basophils % % Neutrophils # (1.3-7.7) k/uL Lymphocytes # (1.0-4.8) k/uL Monocytes # (0-1.0) k/uL Eosinophils # (0-0.7) k/uL Basophils # (0-0.2) k/uL Sodium (137-145) mmol/L Potassium (3.5-5.1) mmol/L Chloride (98-107) mmol/L Carbon Dioxide (22-30) mmol/L Anion Gap mmol/L BUN (9-20) mg/dL Creatinine (0.66-1.25) mg/dL Est GFR (CKD-EPI)AfAm (>60 ml/min/1.73 sqM) Est GFR (CKD-EPI)NonAf (>60 ml/min/1.73 sqM) Glucose (74-99) mg/dL Calcium (8.4-10.2) mg/dL Magnesium (1.6-2.3) mg/dL Total Bilirubin (0.2-1.3) mg/dL AST (17-59) U/L ALT (21-72) U/L Alkaline Phosphatase (38-126) U/L Total Creatine Kinase (55-170) U/L CK-MB (CK-2) (0.0-2.4) ng/mL CK-MB (CK-2) Rel Index Troponin I (0.000-0.034) ng/mL Total Protein (6.3-8.2) g/dL Albumin (3.5-5.0) g/dL Amylase (30-110) U/L Lipase (23-300) U/L Urine Color Yellow Urine Appearance Clear (Clear) Urine pH 7.0 (5.0-8.0) Ur Specific [place] 1.016 (1.001-1.035) Urine Protein Trace H (Negative) Urine Glucose (UA) Negative (Negative) Urine Ketones Negative (Negative) Urine Blood Negative (Negative) Urine Nitrite Negative (Negative) Urine Bilirubin Negative (Negative) Urine Urobilinogen <2.0 (<2.0) mg/dL Ur Leukocyte Esterase Negative (Negative) - Radiology Data Radiology results: image reviewed (Computed tomography angiogram of the brain shows no significant abnormality) Disposition Clinical Impression: Nausea & vomiting Disposition: HOME SELF-CARE Condition: Stable Instructions: Acute Nausea and Vomiting (ED) Additional Instructions: Please follow-up with primary care physician tomorrow. Return for uncontrolled vomiting, headache, weakness or confusion, balance problems or falling, worsening symptoms or other concerns. Prescriptions: Metoclopramide HCl [Reglan] 10 mg PO Q6HR PRN #15 tablet PRN Reason: Nausea Is patient prescribed a controlled substance at d/c from ED?: No Referrals: Coco Grider MD [Primary Care Provider] - 1-2 days Time of Disposition: 18:38
[2018-02-11 15:54] LABS: Basophils % (A) 0 %; Eosinophils # (A) 0.1 k/uL (0-0.7); Eosinophils % (A) 1 %; HCT 43.7 % (39.0-53.0); HGB 14.4 gm/dL (13.0-17.5); Lymphocytes # (A) 2.6 k/uL (1.0-4.8); Lymphocytes % (A) 38 %; MCH 28.4 pg (25.0-35.0); Mean Platelet Volume 6.4; Monocytes # (A) 0.3 k/uL (0-1.0); Monocytes % (A) 5 %; Neutrophils # (A) 3.6 k/uL (1.3-7.7); Neutrophils % (A) 54 %; Platelet Count 225 k/uL (150-450); RBC 5.08 m/uL (4.30-5.90); RDW 13.3 % (11.5-15.5); WBC 6.7 k/uL (3.8-10.6)
[2018-02-11 16:05] LABS: ALT 16 U/L (21-72); AST 26 U/L (17-59); Albumin 4.2 g/dL (3.5-5.0); Alkaline Phosphatase 48 U/L (38-126); Amylase 93 U/L (30-110); Anion Gap 14 mmol/L; Blood Urea Nitrogen 6 mg/dL (9-20); Calcium 9.5 mg/dL (8.4-10.2); Carbon Dioxide 24 mmol/L (22-30); Chloride 94 mmol/L (98-107); Glucose 109 mg/dL (74-99); Lipase 136 U/L (23-300); Magnesium 1.5 mg/dL (1.6-2.3); Potassium 3.2 mmol/L (3.5-5.1); Sodium 132 mmol/L (137-145); Total Bilirubin 0.4 mg/dL (0.2-1.3); Total Protein 7.1 g/dL (6.3-8.2)
[2018-02-11 16:36] LABS: Appearance,Urine Clear (Clear); Bilirubin,Urine Negative (Negative); Blood,Urine Negative (Negative); Color,Urine Yellow; Glucose,Urine (UA) Negative (Negative); Ketones,Urine Negative (Negative); Leukocyte Esterase,Urine Negative (Negative); Nitrite,Urine Negative (Negative); Protein,Urine Trace (Negative); Specific Gravity,Urine 1.016 (1.001-1.035); Urobilinogen,Urine <2.0 mg/dL (<2.0)
[2018-02-11 16:51] LABS: Creatine Kinase 97 U/L (55-170)
[2018-02-11 17:03] LABS: Creatine Kinase MB 1.1 ng/mL (0.0-2.4); Troponin I <0.012 ng/mL (0.000-0.034)
[2018-02-11] MEDS ORDERED: MAGNESIUM OXIDE 400 MG TAB PO STA (17:04)
[2018-02-11] MEDS ORDERED: POTASSIUM CHLORIDE ER 20 MEQ TAB.ER PO STA (17:04)
[2018-02-11 17:45] VITALS: BP 117/54; PULSE 62; RESP 17
--- NOTE | 2018-02-11 18:11 | CT ---
EXAMINATION TYPE: CT angio head neck DATE OF EXAM: 02/11/2018 HISTORY: Headaches, dizziness, nausea and blurred vision. COMPARISON: CT DLP: 460 mGycm. Automated Exposure Control for Dose Reduction was Utilized. TECHNIQUE: CTA scan of the neck is performed with IV Contrast, patient injected with 65 mL of Isovue 370, axial images are obtained, coronal and sagittal reformatted images are reviewed. Three-D recons tructed images are created on an independent workstation and reviewed. FINDINGS: There is normal branching pattern of the great vessels on the aortic arch. There is bilateral arteria l flow in the vertebral arteries. Left vertebral artery is larger than the right. I see no vertebral stenosis. There is arterial flow in the common internal and external carotid arteries bilaterally. Th ere is plaque formation at the carotid artery bifurcations bilaterally and lumen narrowing of approxi mately 40% on the left side and 25% on the right side. There is no evidence of carotid or vertebral a rtery aneurysm or dissection. Basilar artery fills mostly from the left side. There is arterial flow in the anterior middle and posterior cerebral arteries. There is arterial flow in the vertebrobasilar artery system. There is normal contrast opacification of the venous sinuses. I see no evidence of aneurysm or neovascularity. There is no mass effect. There is no evidence of art erial stenosis. IMPRESSION: Atherosclerotic vascular disease. Approximate 40% stenosis left internal carotid artery and 25% steno sis right internal carotid artery at the bifurcation. IMPRESSION: No significant abnormality is seen.
== END 2018-02-11 18:55 | disposition home or self-care (01) ==
LOC: EC 15:00
DX: R11.2 Nausea with vomiting, unspecified (principal); R68.83 Chills (without fever); H53.8 Other visual disturbances; E78.5 Hyperlipidemia, unspecified; I10 Essential (primary) hypertension; Z87.891 Personal history of nicotine dependence; Z79.01 Long term (current) use of anticoagulants; Z79.899 Other long term (current) drug therapy; Z88.5 Allergy status to narcotic agent; Z86.718 Personal history of other venous thrombosis and embolism
CPT/HCPCS: 36415; 93005; 80053; 82150; 82550; 82553; 83690; 83735; 84484; 85025; 81003; 70496; 70498; 99284; 96374; 96375 ×2; 96361; J2060; J1200; J2765; Q9967

== ENCOUNTER → 2018-02-16 | Outpatient (CLI) | payer BC ==
--- NOTE | 2018-02-17 08:15 | CT ---
EXAMINATION TYPE: CT urogram wo/w con DATE OF EXAM: 02/16/2018 COMPARISON: Ultrasound the , 03/20/2013 CT scan HISTORY: Abnormal US per patient CT DLP: 3413 mGycm, Automated Exposure Control for Dose Reduction was Utilized. CONTRAST: CT scan of the abdomen and pelvis is performed with oral and without and with IV Contrast, patient in jected with 100 mL of Isovue 370. FINDINGS: LUNG BASES: There are subsegmental areas of consolidation pleural thickening involving both lung base s.. LIVER/GB: Hepatic granuloma noted. PANCREAS: No significant abnormality is seen. SPLEEN: Splenic granuloma noted.. ADRENALS: No significant abnormality is seen. KIDNEYS: No hydronephrosis or nephrolithiasis. No solid or cystic renal mass. There is cortical lobul ation bilaterally. No filling defect within the visualized collecting system. Ureters are of normal c ourse and caliber. Segmentally opacified with no obvious filling defect.. BOWEL: Bowel gas pattern nonspecific. Diverticulosis of the colon. Assessment of bowel limited due to lack of IV contrast.. LYMPH NODES: No greater than 1cm abdominal or pelvic lymph nodes are appreciated. OSSEOUS STRUCTURES: Hypertrophic and degenerative change of the tibial, multilevel facet arthropathy. OTHER: Atherosclerotic changes aorta with no evidence of aneurysm. IMPRESSION: 1. Cortical lobulation with no evidence of nephrolithiasis, hydronephrosis or renal mass. 2. Diverticulosis of the colon
== END | disposition home or self-care (01) ==
LOC: RADCTMAIN 17:29
PROVIDERS: ATTEND Internal Medicine
DX: Q63.1 Lobulated, fused and horseshoe kidney (principal); K57.90 Diverticulosis of intestine, part unspecified, without perforation or abscess without bleeding
CPT/HCPCS: 74178; 74400; Q9967

== ENCOUNTER → 2018-02-18 | Outpatient (CLI) | payer BC ==
[2018-02-18 16:10] LABS: Basophils % (A) 1 %; Eosinophils # (A) 0.1 k/uL (0-0.7); Eosinophils % (A) 1 %; HCT 41.5 % (39.0-53.0); HGB 13.6 gm/dL (13.0-17.5); Lymphocytes % (A) 27 %; MCH 28.6 pg (25.0-35.0); MCHC 32.9 g/dL (31.0-37.0); Mean Platelet Volume 6.3; Monocytes # (A) 0.4 k/uL (0-1.0); Monocytes % (A) 5 %; Neutrophils # (A) 4.9 k/uL (1.3-7.7); Neutrophils % (A) 66 %; Platelet Count 268 k/uL (150-450); RBC 4.78 m/uL (4.30-5.90); RDW 13.9 % (11.5-15.5); WBC 7.4 k/uL (3.8-10.6)
[2018-02-18 16:36] LABS: ALT 28 U/L (21-72); AST 26 U/L (17-59); Alkaline Phosphatase 51 U/L (38-126); Anion Gap 11 mmol/L; Blood Urea Nitrogen 9 mg/dL (9-20); Calcium 9.5 mg/dL (8.4-10.2); Carbon Dioxide 26 mmol/L (22-30); Chloride 101 mmol/L (98-107); Glucose 100 mg/dL (74-99); Magnesium 1.6 mg/dL (1.6-2.3); Potassium 3.6 mmol/L (3.5-5.1); Sodium 138 mmol/L (137-145); Total Bilirubin 0.3 mg/dL (0.2-1.3); Total Protein 6.9 g/dL (6.3-8.2)
== END | disposition home or self-care (01) ==
LOC: LABWHC1 15:33
PROVIDERS: ATTEND Internal Medicine
DX: I10 Essential (primary) hypertension (principal)
CPT/HCPCS: 36415; 80053; 83735; 85025

== ENCOUNTER → 2018-04-10 | Outpatient (CLI) | payer BC ==
--- NOTE | 2018-04-10 08:01 | US ---
EXAMINATION TYPE: US venous doppler duplex LE DATE OF EXAM: 04/10/2018 7:38 AM COMPARISON: US 2014 CLINICAL HISTORY: I82.409 Recurrent deep vein thrombosis. History of left leg DVT, patient on blood t hinners SIDE PERFORMED: Bilateral TECHNIQUE: The lower extremity deep venous system is examined utilizing real time linear array sonog britton with graded compression, doppler sonography and color-flow sonography. VESSELS IMAGED: External Iliac Vein (EIV) Common Femoral Vein Deep Femoral Vein Greater Saphenous Vein * Femoral Vein Popliteal Vein Small Saphenous Vein * Proximal Calf Veins (* superficial vessels) Right Leg: Appears negative for DVT Left Leg: Appears positive for DVT proximal femoral vein through proximal calf veins IMPRESSION: 1. DVT left lower extremity. 2. No evidence for DVT right lower extremity.
== END ==
LOC: RADUSWWP 06:57
PROVIDERS: ATTEND Internal Medicine Hematology & Oncology
DX: I82.402 Acute embolism and thrombosis of unspecified deep veins of left lower extremity (principal)
CPT/HCPCS: 93970

== ENCOUNTER → 2019-12-06 | Outpatient (CLI) | payer BC ==
--- NOTE | 2019-12-06 15:25 | US ---
EXAMINATION TYPE: US venous doppler duplex LE DATE OF EXAM: 12/06/2019 3:11 PM COMPARISON: US 04/10/2018 CLINICAL HISTORY: M79.605 LEFT LEG PAIN. History of DVT left leg dating back to 2012, pain and rednes s left leg with palpable lump. Patient currently taking blood thinners SIDE PERFORMED: Left TECHNIQUE: The lower extremity deep venous system is examined utilizing real time linear array sonog britton with graded compression, doppler sonography and color-flow sonography. VESSELS IMAGED: External Iliac Vein (EIV) Common Femoral Vein Deep Femoral Vein Greater Saphenous Vein * Femoral Vein Popliteal Vein Small Saphenous Vein * Proximal Calf Veins (* superficial vessels) Left Leg: Positive for DVT- unable to see any thready flow within the proximal to distal femoral vei n. At the patient's palpable lump, left calf, there is a shadowing echogenic foci visualized measurin g 2mm IMPRESSION: 1. Deep venous thrombosis left lower extremity. There has been chronic thrombus within the left dista l femoral vein with some prior thready flow which was unable to be reproduced today. Findings are wor sening.
== END | disposition home or self-care (01) ==
LOC: RADUSWWP 14:18
PROVIDERS: ATTEND Internal Medicine
DX: I82.402 Acute embolism and thrombosis of unspecified deep veins of left lower extremity (principal); I82.512 Chronic embolism and thrombosis of left femoral vein

== ENCOUNTER → 2020-03-14 | Outpatient (CLI) | payer BC ==
[~2020-03-14] MED LIST: REGADENOSON 0.4 MG/5 ML SYRINGE IV ONE
--- NOTE | 2020-03-14 11:25 | EST ---
EXERCISE STRESS AGE: 59 SEX: M HT: 76" WT: 307 PROTOCOL: Lexiscan Cardiolite Stress Test HEART RATE REST: 77 BLOOD PRESSURE REST: 110/78 MAXIMUM HEART RATE ACHIEVED: 82 MAXIMUM BLOOD PRESSURE: 111/66 INDICATIONS: Old myocardial infarction CLINICAL INFORMATION: Baseline EKG revealed normal sinus rhythm without significant ST changes. With Lexiscan administration, heart rate changed from 77-82 beats per minute, blood pressure changed from 110/78 to 111/66. EKG was unremarkable. Patient was asymptomatic. By EKG criteria, this is unremarkable Lexiscan stress test. The nuclear scan results which are more pertinent will be reported by the radiologist. MMODL / IJN: [id number] /
--- NOTE | 2020-03-14 12:45 | NM ---
EXAMINATION TYPE: NM stress lexiscan cardiolite DATE OF EXAM: 03/14/2020 COMPARISON: NONE HISTORY: 59-year-old male with myocardial infarction, I25.2 TECHNIQUE: After the intravenous administration of 9.9 mCi Tc 99m Sestamibi - Cardiolite resting SPE CT images acquired 45 minutes post injection. The patient received 0.4mg Lexiscan, 26.3 mCi Tc 99m Sestamibi - Stress images obtained [address] injection FINDINGS: Review of stress and rest SPECT images demonstrates no distinct perfusion abnormality. Gated analysi s shows normal wall motion with an estimated left ventricular ejection fraction of 64 %. TID is calc ulated at 0.94, within normal limits. IMPRESSION: No scintigraphic evidence for reversible ischemia. No fixed defects to suggest a sizable prior infarc t.
== END | disposition home or self-care (01) ==
LOC: RADNMMAIN 07:54
PROVIDERS: ATTEND Internal Medicine
DX: Z09 Encounter for follow-up examination after completed treatment for conditions other than malignant neoplasm (principal); I25.2 Old myocardial infarction
CPT/HCPCS: 93017; 78452; A9500; J2785

== ENCOUNTER → 2021-02-13 | Outpatient (CLI) | payer BC ==
--- NOTE | 2021-02-18 03:24 | MR ---
EXAMINATION TYPE: MR lumbar spine wo/w con DATE OF EXAM: 02/13/2021 COMPARISON: 08/02/2013 HISTORY: Spondylosis of lumbar CONTRAST: Standard multiplanar, multisequence MRI departmental protocol utilizing 14 mL intravenous Gadavist ga dolinium contrast. Lumbar vertebra have normal alignment. There is some degenerative disc space narrowing at L5-S1. Ther e is apparent laminectomy defect in the lower lumbar spine at L4 and L5. There is lateral recess sten osis and spinal stenosis at L3-4 and L2-3 due to facet arthropathy. There is no lumbar paraspinal mas s. There is no compression fracture. There is small posterior disc bulging at L3-4 and L4-5. The cont rast images show no pathologic enhancement. The sacroiliac joints are intact. IMPRESSION: Previous surgery. There is significant improvement in the spinal stenosis at L4-5 compared to old exa m. There is mild spinal stenosis and lateral recess stenosis at L2-3 and L3-4 increased slightly comp ared to old exam.
== END | disposition home or self-care (01) ==
LOC: RADMRIMAIN 15:10
PROVIDERS: ATTEND Internal Medicine
DX: M48.061 Spinal stenosis, lumbar region without neurogenic claudication (principal)
CPT/HCPCS: 72158; A9585

== ENCOUNTER → 2021-03-01 | Outpatient (CLI) | payer BC ==
[2021-03-01 13:55] VITALS: PULSE 73; RESP 18; TEMP 97.4
[2021-03-01 14:05] VITALS: BP 176/84
--- NOTE | 2021-03-01 14:33 | P.PAINCN ---
History of Present Illness - Reason for Consult Consult date: 03/01/21 - History of Present Illness This 60 years old male with a chronic history of severe low back pain started in 1989, patient had the 3 back surgery the first one was in was in -05/14 surgery was in 2016, patient continued to have severe low back pain and is continuous localized in the low back area with radiation to the lower extremity bilaterally, he reported that he feels some numbness and tingling and burning sensation in the lower extremities, he feels some weakness in his lower extremity he denies any fever or night sweats. He denies any change in bowel movement or urination, she already done physical therapy without any significant improvement in the is not able to do home exercise patient currently on Lyrica 200 mg 3 times a day and baclofen, and he continued to have severe pain Past Medical History Past Medical History: Deep Vein Thrombosis (DVT), GERD/Reflux, Hyperlipidemia, Hypertension, Pulmonary Embolus (PE) Additional Past Medical History / Comment(s): Chronic back pain and follows with [facility] pain clinic. DVT 1989- GROIN-ALSO TURNED INTO PE. DVT 2012-LT GROIN History of Any Multi-Drug Resistant Organisms: None Reported Past Surgical History: Back Surgery Additional Past Surgical History / Comment(s): Back surgery x3 (/2016) Hx blood clot x2 (), temporary Ashley filter placement and removal Past Anesthesia/Blood Transfusion Reactions: No Reported Reaction Smoking Status: Former smoker - Past Family History Father Family Medical History: Deep Vein Thrombosis (DVT) Additional Family Medical History / Comment(s): Father is alive at age 83 with history of hypertension and coronary artery disease status post triple vessel CABG in 2011. Mother Additional Family Medical History / Comment(s): Mother is alive at age 79 with no major medical problems. Brother(s) Additional Family Medical History / Comment(s): Patient has 1 sister with no major medical problems. Patient does not have any brothers. Daughter(s) Additional Family Medical History / Comment(s): Patient has 4 children and 3 are healthy with no major medical problems. One daughter at age 22 has hypertension, fibromyalgia, chronic lymphedema, gastroesophageal reflux disease, irritable bowel syndrome, chronic back pain status post 2 back surgeries. Medications and Allergies Home Medications Medication Instructions Recorded Confirmed Type Atorvastatin [Lipitor] 20 mg PO DAILY 02/09/16 03/01/21 History Cholecalciferol [Vitamin D3] 2,000 units PO DAILY 02/09/16 03/01/21 History Lisinopril-Hctz 20-12.5 mg 1 tab PO DAILY 02/09/16 03/01/21 History [Zestoretic 20-12.5] Pantoprazole [Protonix] 40 mg PO DAILY 02/09/16 03/01/21 History Rivaroxaban [Xarelto] 20 mg PO HS 02/09/16 03/01/21 History Baclofen [Lioresal] 10 mg PO BID 02/28/21 03/01/21 History Butalbital/Acetaminophen 1 each PO DAILY 02/28/21 03/01/21 History [Butalbital/Acetaminophen 50-300mg] Pregabalin [Lyrica] 200 mg PO TID 02/28/21 03/01/21 History clonazePAM [KlonoPIN] 0.5 mg PO DAILY 02/28/21 03/01/21 History Allergies Allergy/AdvReac Type Severity Reaction Status Date / Time morphine Allergy Unknown Unknown Verified 03/01/21 13:37 Physical Exam Vitals: Vital Signs Temp Pulse Resp BP Pulse Ox 03/01/21 13:46 97.4 F L 73 18 176/84 96 Physical Examinations : -Constitutiona : Cooperative , not in acute distress . -HEENT : nech : supple , no Lymphadenopathy , normal thyroid size . : eyes : no ptosis , no icterus, no photophobia . - neurologic : Cranial nerve II to XII intact , no focal neurological deffecit . -psychatric : alert , oriented X 3 , appropriate affect , intact judgment and insight . -Lymphatic : no Lymphadenopathy . - musculoskeltal : Lumber spine moter stegnth lower extremities ,thigh and legs 5/5 Right side , 5/5 Left side deep tendon reflexes : normal Knee Jerk , normal ankle Jerk lumber facet Loading Test =positive Right , positive Left Range of motion of the lumbar spine Flexion 30 degrees, extension 10 degrees strait leg raising test = positive at degree Fabere test= positive Right , and positive LT . tenderness over the Sacroiliac joint on the Right , and Left sides Results Comments: MRI of the lumbar spine= spinal stenosis, lumbar facet arthropathy, previous laminectomy surgery Assessment and Plan Plan: Assessment and plan=1-lumbar spondylosis with lumbar facet arthropathy. 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 3-lumbar spinal stenosis. Coagulopathic secondary to antiplatelet therapy Xarelto he would be good candidate to have diagnostic medial branch block lumbar area at L4 5 and L5-S1 and possible RFA Time with Patient: Greater than 30 PQRS Measure Charge Sheet Measure #130: Documentation of Current Meds in Medical Chart: Patient's medications documented in chart Measure #226: Tobacco Use: Screen & Cessation Intervention: Pt screened for tobacco use AND intervention given Measure #111: Pneumonia Vaccination: Pneumococcal vaccine NOT administered or previously given Measure #47: Advance Care Plan: Advance care planning discussed & documented, pt chose/unable to give Measure #412: Opioid Treatment Agreement: No documentation of signed opioid treatment agreement Measure #408: Opioid Therapy Follow-up Evaluation: Patient had NO f/u eval minimum every 3 months during opioid therapy Measure #317: Preventitive Care & Scrn High Bld Press & F/U: Pre-hypertensive or hypertensive BP documented, pt will f/u with PCP Measure #128: Body Mass Index (BMI) Screening & Follow-up: BMI documented ABOVE normal parameters - f/u documented Measure #131: Pain Assessment & Follow-up: Pain positive & plan documented, Follow-up scheduled Measure #431: Unhealthy Alcohol Use Preventative Care & Scrn: Patient not identified as an unhealthy alcohol user Mode of Arrival: Ambulatory - Pain Location Lower Back Non-Pharmacological Interventions: Inactivity, Physical Therapy, Sitting, Standing Pharmacological Interventions: Block, Epidural, PRN Medication PQRS Narrative: Smoking Status Former smoker Narcotic Agreement Date Signed 02/14/16 Blood Pressure 176/84 Pain Intensity [Lower Back] 8 Scale Used Numeric (1 - 10) Hx Alcohol Use (MH) Yes: RARE Home Medications: Ambulatory Orders Atorvastatin [Lipitor] 20 mg PO DAILY 02/09/16 Cholecalciferol [Vitamin D3] 2,000 units PO DAILY 02/09/16 Lisinopril-Hctz 20-12.5 mg [Zestoretic 20-12.5] 1 tab PO DAILY 02/09/16 Pantoprazole [Protonix] 40 mg PO DAILY 02/09/16 Rivaroxaban [Xarelto] 20 mg PO HS 02/09/16 Baclofen [Lioresal] 10 mg PO BID 02/28/21 Butalbital/Acetaminophen [Butalbital/Acetaminophen 50-300mg] 1 each PO DAILY 02/28/21 Pregabalin [Lyrica] 200 mg PO TID 02/28/21 clonazePAM [KlonoPIN] 0.5 mg PO DAILY 02/28/21
== END ==
LOC: PNWHC3 13:24
PROVIDERS: ATTEND Specialist
DX: M47.816 Spondylosis without myelopathy or radiculopathy, lumbar region (principal); M96.1 Postlaminectomy syndrome, not elsewhere classified; M48.061 Spinal stenosis, lumbar region without neurogenic claudication; E78.5 Hyperlipidemia, unspecified; I10 Essential (primary) hypertension; Z86.718 Personal history of other venous thrombosis and embolism; Z87.891 Personal history of nicotine dependence; Z88.5 Allergy status to narcotic agent
CPT/HCPCS: 99211

== ENCOUNTER 2021-04-27 08:57 | Day surgery (SDC) | payer BC ==
[2021-04-25 15:15] VITALS: BMI 34.3
[2021-04-27] MEDS ORDERED: LACTATED RINGERS 1,000 ML IV SCH (09:10)
[2021-04-27 09:23] VITALS: RESP 16; TEMP 98.5
[2021-04-27] MEDS ORDERED: LIDOCAINE 1% (10MG/ML) FOR IV START INTRADERMA ONE (09:37)
[2021-04-27] MEDS ORDERED: MIDAZOLAM 2 MG/2 ML VIAL ONE (09:40)
[2021-04-27] MEDS ORDERED: .fentaNYL (PF) 50 MCG/ML 2 ML AMP ONE (09:40)
[2021-04-27] MEDS ORDERED: methylPREDNISolone ACETATE 40 MG/ML 1 ML VIAL ONE (09:40)
[2021-04-27] MEDS ORDERED: ROPIVACAINE 5MG/ML 20ML VIAL ONE (09:40)
--- NOTE | 2021-04-27 10:02 | P.PCN ---
Date of Procedure: 04/27/21 Procedure(s) Performed: PREOPERATIVE DIAGNOSIS : 1- Lumbar spondylosis with Facet Arthropathy without myelopathy . POSTOPERATIVE DIAGNOSIS: 1- Lumbar spondylosis with Facet Arthropathy without myelopathy . PROCEDURE: Diagnostic bilateral L3 , L4 , and L5 medial branch block under fluoroscopy guidance(fluoroscopy images available in the radiology Department ) ( To target the facet joint between Bilateral L4-5 , and L5-S1 )# 1st ANESTHESIA:, monitered anesthesia care as per anesthesia department. EBL: Minimal COMPLICATION: None PROCEDURE INDICATION: Chronic low back pain secondary to Facet arthropathy unresponsive to conservative treatment. PROCEDURE DESCRIPTION: the patient was seen and identified in the preop holding area , risks and benefits and possible complications of the procedure and alternative were discussed with the patient, and the patient agreed to proceed with the procedure and signed the consent and vital signs monitored during the procedure and fluoroscopy was used to maximize the benefit and accuracy of the needle placement, and sedation was given to decrease patient anxiety, patient was taken to the procedure room and placed in prone position vital signs monitored in the back prepped with chlorhexidine X3 then under strict sterile technique using a right oblique fluoroscopy ,the junction of the transverse process and the superior articulating process of the right L3 , L4 , and L5 vertebra which corresponding to the fluoroscopy image of the eye of the Brennen dog on the block side for the medial branches and subsequently , after local infiltration of skin and subcu tissuies with Ropivacaine 0.5 % , one mL at each level ,then 22-gauge 5 inches long Quincke-type needles , 3 needle was used , each one of them placed at the junction of the base of the transverse process and the superior articular process at the appropriate level, and the needle was advanced until the periosteum contacted, needle placement confirmed with AP oblique and lateral view and after appropriate needle placement confirmed, and after negative aspiration for heme and CSF and there was no paresthesia 1-1/2 mL of Ropivacaine 0.5% mixed with 20 mg Depo-Medrol , then half mL injected at each level after negative aspiration the needle subsequently removed and the same procedure repeated for the left side at left side at L3 , L4 and L5 levels. At the end of the procedure and the needles removed and a bandage applied after the skin was cleaned the cleaning solution patient taken to recovery room in stable condition and monitors in the recovery room for 20-30 minutes and discharged home in stable condition after discharge criteria met and patient will follow up with the pain clinic in 2-4 weeks
[2021-04-27] MEDS ORDERED: IV FLUID CONTINUATION 1,000 ML IV ONE (10:04)
--- NOTE | 2021-04-27 10:19 | FL ---
EXAMINATION TYPE: FL guided pain mgmt statistic DATE OF EXAM: 04/27/2021 CLINICAL HISTORY: Low back pain. TECHNIQUE: Fluoroscopy. COMPARISON: None. FINDINGS: Fluoroscopic guidance was provided during pain relief procedure performed by anesthesia Dr . A total of 9 seconds of fluoroscopic time was utilized during the procedure and 4 spot images are acquired. Images acquired shows needle localization at several levels in the lumbar spine. IMPRESSION: As Above.
[2021-04-27 10:22] VITALS: BP 115/68; PULSE 63
== END 2021-04-27 10:45 | disposition home or self-care (01) ==
LOC: ORPAIN 08:57
PROVIDERS: ATTEND Specialist
DX: M47.816 Spondylosis without myelopathy or radiculopathy, lumbar region (principal)
CPT/HCPCS: 64493; 64494; J2250; J3010

== ENCOUNTER → 2021-05-07 | Outpatient (CLI) | payer BC ==
[2021-05-07 11:45] VITALS: BP 126/70; PULSE 72; RESP 18; TEMP 98.2
--- NOTE | 2021-05-07 19:08 | P.PN ---
Subjective Progress Note Date: 05/07/21 This is follow up visit for this 60 years old male with a chronic history of severe low back pain started in 1989, patient had the 3 back surgery , patient continued to have severe low back pain and is continuous localized in the low back area with radiation to the lower extremity bilaterally, he reported that he feels some numbness and tingling and burning sensation in the lower extremities, he feels some weakness in his lower extremity he denies any fever or night sweats. He denies any change in bowel movement or urination, she already done physical therapy without any significant improvement in the is not able to do home exercise patient currently on Lyrica 200 mg 3 times a day and baclofen, and he continued to have severe pain, patient diagnosed with lumbar spondylosis with lumbar facet arthropathy, and also patient had lumbar spinal stenosis, currently we have done diagnostic medial branch block lumbar area,(done 04/27/2021), patient reported that second day after the block his pain increased significantly, intensity of the pain is 10 over 10, the pain is not improved with the current treatment(Lyrica )and baclofen, and the pain mainly in the right side of his low back and the pain radiated to the right lower extremity Physical Examinations : -Constitutiona : Cooperative , not in acute distress . -HEENT : nech : supple , no Lymphadenopathy , normal thyroid size . : eyes : no ptosis , no icterus, no photophobia . - neurologic : Cranial nerve II to XII intact , no focal neurological deffecit . -psychatric : alert , oriented X 3 , appropriate affect , intact judgment and insight . -Lymphatic : no Lymphadenopathy . - musculoskeltal : Lumber spine moter stegnth lower extremities ,thigh and legs 5/5 Right side , 5/5 Left side deep tendon reflexes : normal Knee Jerk , normal ankle Jerk lumber facet Loading Test =positive Right , positive Left Range of motion of the lumbar spine Flexion 30 degrees, extension 10 degrees strait leg raising test = positive at 30 degree on the right side ,and is negative on the left side Fabere test= positive Right , and positive LT . tenderness over the Sacroiliac joint on the Right , and Left sides The back examined and showed that the injection area clear, there is no hematoma, there is no bruises, there is no discoloration Results MRI of the lumbar spine= spinal stenosis, lumbar facet arthropathy, previous laminectomy surgery Assessment and plan= 1-lumbar spondylosis with lumbar facet arthropathy. 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 3-lumbar spinal stenosis. Coagulopathic secondary to antiplatelet therapy Xarelto Patient reported that the pain second day after the diagnostic medial branch block lumbar area Patient could benefit from caudal epidural steroid injection with lysis of epidural adhesions under fluoroscopy guidance We need to get approval from the tip finisher to hold Xarelto for 3 days before the procedure PQRS Measure Charge Sheet Measure #130: Documentation of Current Meds in Medical Chart: Patient's medications documented in chart Measure #226: Tobacco Use: Screen & Cessation Intervention: Pt screened for tobacco use AND intervention given Measure #111: Pneumonia Vaccination: Pneumococcal vaccine NOT administered or previously given Measure #47: Advance Care Plan: Advance care planning discussed & documented, pt chose/unable to give Measure #412: Opioid Treatment Agreement: No documentation of signed opioid treatment agreement Measure #408: Opioid Therapy Follow-up Evaluation: Patient had NO f/u eval minimum every 3 months during opioid therapy Measure #317: Preventitive Care & Scrn High Bld Press & F/U: Pre-hypertensive or hypertensive BP documented, pt will f/u with PCP Measure #128: Body Mass Index (BMI) Screening & Follow-up: BMI documented ABOVE normal parameters - f/u documented Measure #131: Pain Assessment & Follow-up: Pain positive & plan documented, Follow-up scheduled Measure #431: Unhealthy Alcohol Use Preventative Care & Scrn: Patient not identified as an unhealthy alcohol user Mode of Arrival: Ambulatory Objective - Vital Signs Vital signs: Vital Signs Temp 98.2 F 05/07/21 11:39 Pulse 72 05/07/21 11:39 Resp 18 05/07/21 11:39 BP 126/70 05/07/21 11:39 Pulse Ox 97 05/07/21 11:39 Intake & Output 05/07/21 05/07/21 05/08/21 06:59 18:59 06:59 Weight 128.232 kg
== END ==
LOC: PNWHC3 11:24
PROVIDERS: ATTEND Specialist
DX: M47.816 Spondylosis without myelopathy or radiculopathy, lumbar region (principal); M96.1 Postlaminectomy syndrome, not elsewhere classified; M48.061 Spinal stenosis, lumbar region without neurogenic claudication; D68.9 Coagulation defect, unspecified; Z79.01 Long term (current) use of anticoagulants; Z88.5 Allergy status to narcotic agent; Z87.891 Personal history of nicotine dependence
CPT/HCPCS: 99211

== ENCOUNTER 2022-03-21 21:28 | Emergency (ER) | payer BC ==
[2022-03-21 21:41] VITALS: BP 130/98; PULSE 76; RESP 16; TEMP 97.6
[2022-03-21] MEDS ORDERED: SODIUM CHLORIDE 0.9% 1,000 ML IV STA (22:02)
[2022-03-21] MEDS ORDERED: SODIUM CHLORIDE 0.9% 1,000 ML IV ONE (22:02)
[2022-03-21] MEDS ORDERED: METOCLOPRAMIDE 5 MG/ML 2 ML VIAL IVP STA (22:40)
[2022-03-21] MEDS ORDERED: ONDANSETRON 4 MG/2 ML VIAL IVP STA (23:25)
--- NOTE | 2022-03-21 23:49 | XR ---
EXAMINATION TYPE: XR chest 2V DATE OF EXAM: 03/21/2022 COMPARISON: 05/20/2010 HISTORY: Vomiting TECHNIQUE: 2 views FINDINGS: Heart is normal. There is general coarsening of the pulmonary interstitial markings. No ple ural effusion. No heart failure. There are no hilar masses. There is calcified granuloma at the left pulmonary hilum. The bony thorax is intact. IMPRESSION: Coarse pulmonary interstitial density which is mostly new compared to old exam and likely related to interstitial fibrosis. Normal heart. Old granulomatous disease.
--- NOTE | 2022-03-21 23:57 | CT ---
EXAMINATION TYPE: CT brain wo con DATE OF EXAM: 03/21/2022 COMPARISON: 01/26/2018 HISTORY: DELAY DUE TO MULTIPLE PTS MARKED READY CT DLP: 1178.7 mGycm Automated exposure control for dose reduction was used. There is mild cerebral cortical atrophy. There is no mass effect normal Shift. No sign of intracranial hemorrhage. The calvarium is intact. Skull base is intact. There is no rmal aeration of the mastoid air cells. IMPRESSION: Mild atrophy. No acute intracranial abnormality. No change.
[2022-03-22 00:10] LABS: ALT 21 U/L (4-49); AST 41 U/L (17-59); African American GFR (CKD) >90 (>60 ml/min/1.73 sqM); Albumin 4.7 g/dL (3.5-5.0); Alcohol <10 mg/dL; Alkaline Phosphatase 80 U/L (38-126); Anion Gap 10 mmol/L; Blood Urea Nitrogen 9 mg/dL (9-20); Carbon Dioxide 23 mmol/L (22-30); Chloride 99 mmol/L (98-107); Glucose 129 mg/dL (74-99); Non-African American GFR(CKD) >90 (>60 ml/min/1.73 sqM); Sodium 132 mmol/L (137-145); Total Bilirubin 1.1 mg/dL (0.2-1.3); Total Protein 8.2 g/dL (6.3-8.2)
[2022-03-22 00:22] LABS: Potassium 4.8 mmol/L (3.5-5.1)
[2022-03-22 00:24] LABS: Basophils % (A) 0 %; Eosinophils % (A) 0 %; Lymphocytes # (A) 1.1 k/uL (1.0-4.8); Lymphocytes % (A) 12 %; MCH 29.4 pg (25.0-35.0); MCHC 34.9 g/dL (31.0-37.0); MCV 84.3 fL (80.0-100.0); Mean Platelet Volume 8.6; Monocytes # (A) 0.4 k/uL (0-1.0); Monocytes % (A) 5 %; Neutrophils # (A) 7.2 k/uL (1.3-7.7); Neutrophils % (A) 81 %; Platelet Count 213 k/uL (150-450); RDW 14.8 % (11.5-15.5); WBC 8.9 k/uL (3.8-10.6)
--- NOTE | 2022-03-22 00:27 | ED ---
General Adult HPI - General Chief complaint: Abdominal Pain Stated complaint: Nausea, vomiting Time Seen by Provider: 03/21/22 21:34 Source: patient Mode of arrival: EMS Limitations: no limitations - History of Present Illness Initial comments: This patient is a 61-year-old man who presents to have evaluation for a constellation of symptoms that started earlier today. The patient states that he felt like his usual state of health when he woke up around 4 AM. He works from home, and he started working around 7 then noticed that he was beginning to have episodes where he would feel chilled and need to cover up with blankets. He states that he would then feel sweaty and he would have nausea and vomiting. He also developed diffuse aching headache. When the symptoms continued into this evening, and he was not able to keep fluids down he came here for evaluation. Triage notes state that he had one episode of vomiting, patient states that he had multiple episodes. He did not see blood or coffee-ground material. No change in urination or bowel movements. -: hour(s) Location: head Quality: aching Consistency: intermittent Improves with: none Worsens with: none Associated Symptoms: nausea/vomiting Treatments Prior to Arrival: none - Related Data Home Medications Medication Instructions Recorded Confirmed Atorvastatin [Lipitor] 20 mg PO DAILY 02/09/16 05/07/21 Cholecalciferol [Vitamin D3] 2,000 units PO DAILY 02/09/16 05/07/21 Lisinopril-Hctz 20-12.5 mg 1 tab PO DAILY 02/09/16 05/07/21 [Zestoretic 20-12.5] Pantoprazole [Protonix] 40 mg PO DAILY 02/09/16 05/07/21 Rivaroxaban [Xarelto] 20 mg PO HS 02/09/16 05/07/21 Baclofen [Lioresal] 10 mg PO BID 02/28/21 05/07/21 Butalbital/Acetaminophen 1 each PO DAILY 02/28/21 05/07/21 [Butalbital/Acetaminophen 50-300mg] Pregabalin [Lyrica] 200 mg PO TID 02/28/21 05/07/21 clonazePAM [KlonoPIN] 0.5 mg PO DAILY 02/28/21 05/07/21 Allergies Allergy/AdvReac Type Severity Reaction Status Date / Time morphine Allergy Unknown "vomitting, Verified 04/25/21 15:01 out of it" Review of Systems ROS Statement: Those systems with pertinent positive or pertinent negative responses have been documented in the HPI. ROS Other: All systems not noted in ROS Statement are negative. Constitutional: Reports: fever (Subjective), chills Respiratory: Denies: cough, dyspnea, wheezes Cardiovascular: Denies: chest pain, palpitations, edema Gastrointestinal: Reports: nausea, vomiting. Denies: diarrhea, constipation, hematemesis, melena, hematochezia Genitourinary: Denies: dysuria, hematuria Musculoskeletal: Denies: back pain Skin: Denies: rash Neurological: Denies: headache, weakness, numbness Past Medical History Past Medical History: Deep Vein Thrombosis (DVT), GERD/Reflux, Hyperlipidemia, H ypertension, Pulmonary Embolus (PE) Additional Past Medical History / Comment(s): Chronic back pain and follows with [facility] pain clinic. DVT 1989-LT GROIN-ALSO TURNED INTO PE. DVT 2012-LT GROIN, son had postive COVID test 04/10/21- pt had contact then but never had symptoms. History of Any Multi-Drug Resistant Organisms: None Reported Past Surgical History: Back Surgery Additional Past Surgical History / Comment(s): Back surgery x3 (1989/1993/2016) temporary Ashley filter placement and removal Past Anesthesia/Blood Transfusion Reactions: No Reported Reaction Smoking Status: Current every day smoker - Past Family History Father Family Medical History: Deep Vein Thrombosis (DVT) Additional Family Medical History / Comment(s): . Mother Additional Family Medical History / Comment(s): Mother is alive at age 79 with no major medical problems. Brother(s) Additional Family Medical History / Comment(s): Patient has 1 sister with no major medical problems. Patient does not have any brothers. Daughter(s) Additional Family Medical History / Comment(s): . General Exam Limitations: no limitations General appearance: alert, in no apparent distress Head exam: Present: atraumatic, normocephalic Eye exam: Present: normal appearance. Absent: scleral icterus, conjunctival injection ENT exam: Present: mucous membranes dry Neck exam: Present: normal inspection, full ROM. Absent: meningismus Respiratory exam: Present: normal lung sounds bilaterally. Absent: respiratory distress, wheezes, rales, rhonchi, stridor Cardiovascular Exam: Present: regular rate, normal rhythm, normal heart sounds. Absent: systolic murmur, diastolic murmur, rubs, gallop GI/Abdominal exam: Present: soft. Absent: distended, tenderness, guarding, rebound, rigid, mass Extremities exam: Present: normal inspection, normal capillary refill. Absent: pedal edema, calf tenderness Back exam: Present: normal inspection. Absent: CVA tenderness (R), CVA tenderness (L) Neurological exam: Present: alert, oriented X3, CN II-XII intact. Absent: motor sensory deficit Skin exam: Present: warm, dry, intact, normal color. Absent: rash Course Vital Signs 03/21/22 21:39 Temperature 97.6 F Pulse Rate 76 Respiratory 16 Rate Blood Pressure 130/98 O2 Sat by Pulse 98 Oximetry EKG Findings - EKG Results: EKG: interpreted by JUSTIN, sinus rhythm, normal axis, normal ST/T EKG shows: bradycardia (Rate 58 bpm) - Blocks, [place], Hypertrophy, ST Abn: AV and intraventricular conduction: 1 AV block, right bundle branch block (fixed/intermittent, complete/incomplete) (Incomplete) Medical Decision Making - Medical Decision Making Patient's 61-year-old man presenting to have evaluation for fevers and chills, episodic headache and multiple rounds of nausea and vomiting. The workup here is essentially normal. He is feeling much better following IV fluids and antiemetics and would like to go home. Discussed appropriate further care and follow-up. Patient not able to give urine specimen but would like to go home and will follow with his physician. - Lab Data Result diagrams: 03/21/22 23:41 03/21/22 23:41 Lab Results 03/21/22 03/21/22 03/21/22 Range/Units 22:07 23:41 23:41 WBC 8.9 (3.8-10.6) k/uL RBC 5.10 (4.30-5.90) m/uL Hgb 15.0 (13.0-17.5) gm/dL Hct 43.0 (39.0-53.0) % MCV 84.3 (80.0-100.0) fL MCH 29.4 (25.0-35.0) pg MCHC 34.9 (31.0-37.0) g/dL RDW 14.8 (11.5-15.5) % Plt Count 213 (150-450) k/uL MPV 8.6 Neutrophils % 81 % Lymphocytes % 12 % Monocytes % 5 % Eosinophils % 0 % Basophils % 0 % Neutrophils # 7.2 (1.3-7.7) k/uL Lymphocytes # 1.1 (1.0-4.8) k/uL Monocytes # 0.4 (0-1.0) k/uL Eosinophils # 0.0 (0-0.7) k/uL Basophils # 0.0 (0-0.2) k/uL Sodium 132 L (137-145) mmol/L Potassium 4.8 (3.5-5.1) mmol/L Chloride 99 (98-107) mmol/L Carbon Dioxide 23 (22-30) mmol/L Anion Gap 10 mmol/L BUN 9 (9-20) mg/dL Creatinine 0.80 (0.66-1.25) mg/dL Est GFR (CKD-EPI)AfAm >90 (>60 ml/min/1.73 sqM) Est GFR (CKD-EPI)NonAf >90 (>60 ml/min/1.73 sqM) Glucose 129 H (74-99) mg/dL Plasma Lactic Acid Douglas (0.7-2.0) mmol/L Calcium 9.0 (8.4-10.2) mg/dL Total Bilirubin 1.1 (0.2-1.3) mg/dL AST 41 (17-59) U/L ALT 21 (4-49) U/L Alkaline Phosphatase 80 (38-126) U/L Troponin I (0.000-0.034) ng/mL Total Protein 8.2 (6.3-8.2) g/dL Albumin 4.7 (3.5-5.0) g/dL Serum Alcohol <10 mg/dL Coronavirus (PCR) Not Detected (Not Detectd) 03/21/22 03/21/22 Range/Units 23:41 23:41 WBC (3.8-10.6) k/uL RBC (4.30-5.90) m/uL Hgb (13.0-17.5) gm/dL Hct (39.0-53.0) % MCV (80.0-100.0) fL MCH (25.0-35.0) pg MCHC (31.0-37.0) g/dL RDW (11.5-15.5) % Plt Count (150-450) k/uL MPV Neutrophils % % Lymphocytes % % Monocytes % % Eosinophils % % Basophils % % Neutrophils # (1.3-7.7) k/uL Lymphocytes # (1.0-4.8) k/uL Monocytes # (0-1.0) k/uL Eosinophils # (0-0.7) k/uL Basophils # (0-0.2) k/uL Sodium (137-145) mmol/L Potassium (3.5-5.1) mmol/L Chloride (98-107) mmol/L Carbon Dioxide (22-30) mmol/L Anion Gap mmol/L BUN (9-20) mg/dL Creatinine (0.66-1.25) mg/dL Est GFR (CKD-EPI)AfAm (>60 ml/min/1.73 sqM) Est GFR (CKD-EPI)NonAf (>60 ml/min/1.73 sqM) Glucose (74-99) mg/dL Plasma Lactic Acid Douglas 1.6 (0.7-2.0) mmol/L Calcium (8.4-10.2) mg/dL Total Bilirubin (0.2-1.3) mg/dL AST (17-59) U/L ALT (4-49) U/L Alkaline Phosphatase (38-126) U/L Troponin I 0.029 (0.000-0.034) ng/mL Total Protein (6.3-8.2) g/dL Albumin (3.5-5.0) g/dL Serum Alcohol mg/dL Coronavirus (PCR) (Not Detectd) Disposition Clinical Impression: Nausea & vomiting Disposition: HOME SELF-CARE Condition: Good Instructions (If sedation given, give patient instructions): Acute Nausea and Vomiting (DC) Is patient prescribed a controlled substance at d/c from ED?: No Referrals: Coco Grider MD [Primary Care Provider] - 1-2 days
== END 2022-03-22 02:38 | disposition home or self-care (01) ==
LOC: EC 21:28
DX: R11.2 Nausea with vomiting, unspecified (principal); Z86.718 Personal history of other venous thrombosis and embolism; K21.9 Gastro-esophageal reflux disease without esophagitis; E78.5 Hyperlipidemia, unspecified; I10 Essential (primary) hypertension; F17.200 Nicotine dependence, unspecified, uncomplicated; Z88.8 Allergy status to other drugs, medicaments and biological substances; Z79.899 Other long term (current) drug therapy
CPT/HCPCS: 36415; 93005; 80053; 83605; 84484; 85025; 80320; 87635; 71046; 70450; 99285; 96374; 96375; 96361 ×4; J2765; J2405

== ENCOUNTER 2022-03-23 12:58 | Inpatient (IN) | payer BC ==
[2022-03-23] MEDS ORDERED: METOCLOPRAMIDE 5 MG/ML 2 ML VIAL IVP STA (13:22)
[2022-03-23] MEDS ORDERED: SODIUM CHLORIDE 0.9% 1,000 ML IV STA (13:22)
[2022-03-23] MEDS ORDERED: FAMOTIDINE 20 MG/2 ML VIAL IV STA (13:23)
[2022-03-23] MEDS ORDERED: LORazepam 2 MG/ML INJ IV STA (13:23)
--- NOTE | 2022-03-23 13:25 | ED ---
General Adult HPI - General Chief complaint: Nausea/Vomiting/Diarrhea Stated complaint: revisit - vomiting Time Seen by Provider: 03/23/22 13:17 Source: patient, family, RN notes reviewed, old records reviewed (Reviewed records and computed tomography scan from last visit) Mode of arrival: ambulatory Limitations: no limitations - History of Present Illness Initial comments: Patient is a pleasant 61-year-old male presenting to the emergency department with vomiting. Patient was in the emergency department 2 days ago with similar symptoms. Patient states symptoms returned early this morning. Patient has nausea and vomiting. Patient has discomfort in his abdomen at times. Patient does have somewhat of a headache. Patient has had similar episodes at least 4 times previously in his life. Patient states medications he received last time did help him significantly. - Related Data Home Medications Medication Instructions Recorded Confirmed Atorvastatin [Lipitor] 20 mg PO DAILY 02/09/16 05/07/21 Cholecalciferol [Vitamin D3] 2,000 units PO DAILY 02/09/16 05/07/21 Lisinopril-Hctz 20-12.5 mg 1 tab PO DAILY 02/09/16 05/07/21 [Zestoretic 20-12.5] Pantoprazole [Protonix] 40 mg PO DAILY 02/09/16 05/07/21 Rivaroxaban [Xarelto] 20 mg PO HS 02/09/16 05/07/21 Baclofen [Lioresal] 10 mg PO BID 02/28/21 05/07/21 Butalbital/Acetaminophen 1 each PO DAILY 02/28/21 05/07/21 [Butalbital/Acetaminophen 50-300mg] Pregabalin [Lyrica] 200 mg PO TID 02/28/21 05/07/21 clonazePAM [KlonoPIN] 0.5 mg PO DAILY 02/28/21 05/07/21 Allergies Allergy/AdvReac Type Severity Reaction Status Date / Time morphine Allergy Unknown "vomitting, Verified 03/23/22 13:12 out of it" Review of Systems ROS Statement: Those systems with pertinent positive or pertinent negative responses have been documented in the HPI. ROS Other: All systems not noted in ROS Statement are negative. Constitutional: Denies: fever Eyes: Denies: eye pain ENT: Denies: ear pain Respiratory: Denies: cough Cardiovascular: Denies: palpitations Endocrine: Denies: fatigue Gastrointestinal: Reports: nausea, vomiting Genitourinary: Denies: dysuria Musculoskeletal: Denies: back pain Skin: Denies: rash Neurological: Reports: headache. Denies: weakness, confusion Past Medical History Past Medical History: Deep Vein Thrombosis (DVT), GERD/Reflux, Hyperlipidemia, Hypertension, Pulmonary Embolus (PE) Additional Past Medical History / Comment(s): Chronic back pain and follows with [facility] pain clinic. DVT 1989- GROIN-ALSO TURNED INTO PE. DVT 2012-LT GROIN, son had postive COVID test 04/10/21- pt had contact then but never had symptoms. History of Any Multi-Drug Resistant Organisms: None Reported Past Surgical History: Back Surgery Additional Past Surgical History / Comment(s): Back surgery x3 (/2016) temporary Ashley filter placement and removal Past Anesthesia/Blood Transfusion Reactions: No Reported Reaction Past Psychological History: No Psychological Hx Reported Smoking Status: Current every day smoker Past Alcohol Use History: None Reported Past Drug Use History: None Reported - Past Family History Father Family Medical History: Deep Vein Thrombosis (DVT) Additional Family Medical History / Comment(s): . Mother Additional Family Medical History / Comment(s): Mother is alive at age 79 with no major medical problems. Brother(s) Additional Family Medical History / Comment(s): Patient has 1 sister with no major medical problems. Patient does not have any brothers. Daughter(s) Additional Family Medical History / Comment(s): . General Exam Limitations: no limitations General appearance: alert, in no apparent distress Head exam: Present: normocephalic Eye exam: Present: normal appearance, PERRL, EOMI ENT exam: Present: normal oropharynx Neck exam: Present: normal inspection Respiratory exam: Present: normal lung sounds bilaterally Cardiovascular Exam: Present: regular rate, normal rhythm Expanded Peripheral pulses: 2+: Radial (R), Radial (L), Dorsalis Pedis (R), Dorsalis Pedis (L) GI/Abdominal exam: Present: soft, normal bowel sounds. Absent: distended, tenderness, guarding, rebound, rigid, pulsatile mass Extremities exam: Present: normal inspection. Absent: pedal edema, calf tenderness Neurological exam: Present: alert, oriented X3, CN II-XII intact. Absent: motor sensory deficit Expanded Neurological exam: Present: protecting the airway Speech: Present: fluid speech Cranial nerves: EOM's Intact: Normal Sensory exam: Upper Extremity Light Touch: Normal, Lower Extremity Light Touch: Normal Motor strength exam: RUE: 5, LUE: 5, RLE: 5, LLE: 5 Eye Response: (4) open spontaneously Motor Response: (6) obeys commands Verbal Response: (5) oriented Psychiatric exam: Present: normal affect, normal mood Skin exam: Present: normal color Course Vital Signs 03/23/22 03/23/22 13:08 14:27 Temperature 98.5 F Pulse Rate 66 63 Respiratory 22 18 Rate Blood Pressure 189/86 O2 Sat by Pulse 98 100 Oximetry Medical Decision Making - Medical Decision Making Patient reevaluated and feeling much better following medications. Patient and family updated on results and plan. Patient reportedly had a recent suspicious calcium scoring test followed by a normal stress test. Patient is no chest pain at this time. Case was discussed with Dr. Grider. - Lab Data Result diagrams: 03/23/22 14:25 03/23/22 14:25 Lab Results 03/23/22 03/23/22 03/23/22 Range/Units 14:25 14:25 14:25 WBC 8.4 (3.8-10.6) k/uL RBC 5.31 (4.30-5.90) m/uL Hgb 15.3 (13.0-17.5) gm/dL Hct 44.9 (39.0-53.0) % MCV 84.6 (80.0-100.0) fL MCH 28.9 (25.0-35.0) pg MCHC 34.1 (31.0-37.0) g/dL RDW 14.7 (11.5-15.5) % Plt Count 212 (150-450) k/uL MPV 7.9 Neutrophils % 81 % Lymphocytes % 12 % Monocytes % 5 % Eosinophils % 0 % Basophils % 0 % Neutrophils # 6.8 (1.3-7.7) k/uL Lymphocytes # 1.0 (1.0-4.8) k/uL Monocytes # 0.4 (0-1.0) k/uL Eosinophils # 0.0 (0-0.7) k/uL Basophils # 0.0 (0-0.2) k/uL PT 11.2 (9.0-12.0) sec INR 1.0 (<1.2) APTT 24.4 (22.0-30.0) sec Sodium 137 (137-145) mmol/L Potassium 3.8 (3.5-5.1) mmol/L Chloride 98 (98-107) mmol/L Carbon Dioxide 29 (22-30) mmol/L Anion Gap 10 mmol/L BUN 8 L (9-20) mg/dL Creatinine 0.87 (0.66-1.25) mg/dL Est GFR (CKD-EPI)AfAm >90 (>60 ml/min/1.73 sqM) Est GFR (CKD-EPI)NonAf >90 (>60 ml/min/1.73 sqM) Glucose 110 H (74-99) mg/dL Calcium 10.2 (8.4-10.2) mg/dL Total Bilirubin 0.6 (0.2-1.3) mg/dL AST 33 (17-59) U/L ALT 21 (4-49) U/L Alkaline Phosphatase 89 (38-126) U/L Troponin I (0.000-0.034) ng/mL Total Protein 8.2 (6.3-8.2) g/dL Albumin 4.9 (3.5-5.0) g/dL Amylase 48 (30-110) U/L Lipase 54 (23-300) U/L 03/23/22 Range/Units 14:25 WBC (3.8-10.6) k/uL RBC (4.30-5.90) m/uL Hgb (13.0-17.5) gm/dL Hct (39.0-53.0) % MCV (80.0-100.0) fL MCH (25.0-35.0) pg MCHC (31.0-37.0) g/dL RDW (11.5-15.5) % Plt Count (150-450) k/uL MPV Neutrophils % % Lymphocytes % % Monocytes % % Eosinophils % % Basophils % % Neutrophils # (1.3-7.7) k/uL Lymphocytes # (1.0-4.8) k/uL Monocytes # (0-1.0) k/uL Eosinophils # (0-0.7) k/uL Basophils # (0-0.2) k/uL PT (9.0-12.0) sec INR (<1.2) APTT (22.0-30.0) sec Sodium (137-145) mmol/L Potassium (3.5-5.1) mmol/L Chloride (98-107) mmol/L Carbon Dioxide (22-30) mmol/L Anion Gap mmol/L BUN (9-20) mg/dL Creatinine (0.66-1.25) mg/dL Est GFR (CKD-EPI)AfAm (>60 ml/min/1.73 sqM) Est GFR (CKD-EPI)NonAf (>60 ml/min/1.73 sqM) Glucose (74-99) mg/dL Calcium (8.4-10.2) mg/dL Total Bilirubin (0.2-1.3) mg/dL AST (17-59) U/L ALT (4-49) U/L Alkaline Phosphatase (38-126) U/L Troponin I 0.117 H* (0.000-0.034) ng/mL Total Protein (6.3-8.2) g/dL Albumin (3.5-5.0) g/dL Amylase (30-110) U/L Lipase (23-300) U/L - Radiology Data Radiology results: image reviewed (Interpreted by myself: Chest x-ray shows some interstitial changes, abdominal x-ray shows no acute change.) Disposition Clinical Impression: Acute vomiting Disposition: ADMITTED IP TO THIS [facility] Is patient prescribed a controlled substance at d/c from ED?: No Referrals: Coco Grider MD [Primary Care Provider] - 1-2 days Time of Disposition: 15:30
[2022-03-23 14:30] LABS: Basophils % (A) 0 %; Eosinophils % (A) 0 %; HCT 44.9 % (39.0-53.0); HGB 15.3 gm/dL (13.0-17.5); Lymphocytes % (A) 12 %; MCH 28.9 pg (25.0-35.0); MCHC 34.1 g/dL (31.0-37.0); MCV 84.6 fL (80.0-100.0); Mean Platelet Volume 7.9; Monocytes # (A) 0.4 k/uL (0-1.0); Monocytes % (A) 5 %; Neutrophils # (A) 6.8 k/uL (1.3-7.7); Neutrophils % (A) 81 %; Platelet Count 212 k/uL (150-450); RBC 5.31 m/uL (4.30-5.90); RDW 14.7 % (11.5-15.5); WBC 8.4 k/uL (3.8-10.6)
[2022-03-23 14:39] LABS: ALT 21 U/L (4-49); AST 33 U/L (17-59); African American GFR (CKD) >90 (>60 ml/min/1.73 sqM); Albumin 4.9 g/dL (3.5-5.0); Alkaline Phosphatase 89 U/L (38-126); Amylase 48 U/L (30-110); Anion Gap 10 mmol/L; Blood Urea Nitrogen 8 mg/dL (9-20); Calcium 10.2 mg/dL (8.4-10.2); Carbon Dioxide 29 mmol/L (22-30); Chloride 98 mmol/L (98-107); Glucose 110 mg/dL (74-99); Lipase 54 U/L (23-300); Non-African American GFR(CKD) >90 (>60 ml/min/1.73 sqM); Partial Thromboplastin Time 24.4 sec (22.0-30.0); Potassium 3.8 mmol/L (3.5-5.1); Prothrombin Time 11.2 sec (9.0-12.0); Sodium 137 mmol/L (137-145); Total Bilirubin 0.6 mg/dL (0.2-1.3); Total Protein 8.2 g/dL (6.3-8.2)
--- NOTE | 2022-03-23 14:53 | XR ---
EXAMINATION TYPE: XR abdomen 1V DATE OF EXAM: 03/23/2022 COMPARISON: NONE HISTORY: 05/28/2010 TECHNIQUE: 2 views upright FINDINGS: There is no sign of intestinal obstruction or pneumoperitoneum. Fecal pattern is normal. No evidence of a mass. No pathologic calcifications over the kidneys. IMPRESSION: Nonacute abdomen.
--- NOTE | 2022-03-23 15:26 | XR ---
EXAMINATION TYPE: XR chest 2V DATE OF EXAM: 03/23/2022 COMPARISON: 03/21/2022 HISTORY: Chest pain TECHNIQUE: FINDINGS: There is coarse interstitial density in the lungs. Heart size is normal. There is calcified granuloma at the left pulmonary hilum. No pleural effusion. Bony thorax is intact. IMPRESSION: Pulmonary interstitial density likely related to interstitial fibrosis. Acute interstitia l pneumonia not excluded. Normal heart. No change compared to recent exam. Lung disease mostly new co mpared to older exam of 05/20/2010.
[2022-03-23] MEDS ORDERED: ASPIRIN 81 MG PO STA (15:31)
[2022-03-23] MEDS ORDERED: NITROGLYCERIN SL TABS 0.4 MG TAB SUBLINGUAL PRN (15:31)
[2022-03-23] MEDS: NITROGLYCERIN OINT 1 INCH/GM PACKET TOPICAL SCH ×2 (17:07→23:33)
[2022-03-23] MEDS ORDERED: BACLOFEN 10 MG TAB PO PRN (19:05)
[2022-03-23] MEDS: ONDANSETRON 4 MG/2 ML VIAL IVP PRN (19:25)
[2022-03-23] MEDS: SODIUM CHLORIDE 0.9% 1,000 ML IV SCH (19:25)
[2022-03-23] MEDS ORDERED: RIVAROXABAN 20 MG TAB PO SCH (21:00)
[2022-03-23] MEDS: TAMSULOSIN 0.4 MG CAP.ER.24H PO SCH (21:25)
[2022-03-23] MEDS: clonazePAM 0.5 MG TAB PO SCH (21:25)
[2022-03-23] MEDS: PREGABALIN 100 MG CAP PO SCH (21:25)
[2022-03-23] MEDS ORDERED: HEPARIN SODIUM 1,000 UN/ML (10ML VL) IV ONE (22:05)
[2022-03-23] MEDS ORDERED: HEPARIN SODIUM 1,000 UN/ML (10ML VL) IV PRN (22:05)
[2022-03-23] MEDS ORDERED: MAG HYDROX/AL HYDROX/SIMETH 30 ML, HYOSCYAMINE ELIXIR 10 ML PO ONE ×2 (22:07)
[2022-03-23] MEDS ORDERED: METOCLOPRAMIDE 5 MG/ML 2 ML VIAL IVP PRN (22:17)
[2022-03-23] MEDS: HYDROmorphone 1 MG/ML 1 ML SYRINGE IVP PRN (22:35)
[2022-03-23] MEDS: PANTOPRAZOLE 40 MG/10 ML VIAL IVP SCH (22:43)
[2022-03-23] MEDS: HEPARIN SOD,PORK IN 0.45% NACL 25,000 UNIT in 0.45% NACL 1 250ML.BAG IV SCH (22:51)
--- NOTE | 2022-03-24 02:38 | CT ---
EXAMINATION TYPE: CT angio thor/abd pel aorta DATE OF EXAM: 03/24/2022 COMPARISON: None HISTORY: R/O disection CT DLP: 1655.1 mGycm Automated exposure control for dose reduction was used. CONTRAST: Performed with IV Contrast, patient injected with 100ml mL of Isovue 370. Images obtained from the thoracic inlet to the floor the pelvis without and subsequently with the IV contrast. There are Three-D postprocessed images. There is normal diameter of the aortic arch. No aneurysm or dissection. No evidence of filling defect in the pulmonary arteries. There is normal contrast opacification of the celiac artery and superior mesenteric artery. There is arterial flow in both renal arteries. There is mild atheromatous changes in the thoracic and abdominal aorta. No stenosis. There is arterial flow in the iliac and femoral art eries. No significant plaque formation there is arterial flow in the inferior mesenteric artery The thoracic and lumbar vertebra appear intact. No compression fracture. The appendix is posterior and lateral and appears normal. There are multiple sigmoid diverticula. No diverticulitis. IMPRESSION: Negative CT angiogram of the chest abdomen and pelvis. No evidence of arterial aneurysm or dissection . No evidence of hemodynamic stenosis. There is atherosclerotic plaque formation without significant stenosis. No evidence of pulmonary embolism.
[2022-03-24 05:16] LABS: Basophils # (A) 0.1 k/uL (0-0.2); Basophils % (A) 1 %; Eosinophils % (A) 0 %; HCT 40.1 % (39.0-53.0); HGB 13.3 gm/dL (13.0-17.5); Lymphocytes # (A) 2.1 k/uL (1.0-4.8); Lymphocytes % (A) 26 %; MCH 28.4 pg (25.0-35.0); MCHC 33.1 g/dL (31.0-37.0); MCV 85.8 fL (80.0-100.0); Mean Platelet Volume 7.7; Monocytes # (A) 0.6 k/uL (0-1.0); Monocytes % (A) 7 %; Neutrophils # (A) 5.1 k/uL (1.3-7.7); Neutrophils % (A) 64 %; Platelet Count 193 k/uL (150-450); RBC 4.68 m/uL (4.30-5.90); RDW 14.9 % (11.5-15.5)
[2022-03-24 05:37] LABS: INR 1.1 (<1.2); Partial Thromboplastin Time 37.3 sec (22.0-30.0); Prothrombin Time 11.4 sec (9.0-12.0)
[2022-03-24] MEDS: NITROGLYCERIN OINT 1 INCH/GM PACKET TOPICAL SCH ×2 (06:14→12:02)
[2022-03-24] MEDS: SODIUM CHLORIDE 0.9% 1,000 ML IV SCH ×3 (06:14→22:39)
[2022-03-24] MEDS ORDERED: PANTOPRAZOLE 40 MG TABLET PO SCH (07:30)
[2022-03-24] MEDS: PREGABALIN 100 MG CAP PO SCH ×3 (08:46→19:53)
[2022-03-24] MEDS: ASPIRIN 325 MG TAB PO SCH (08:46)
[2022-03-24] MEDS: CHOLECALCIFEROL 25 MCG (1000 IU) TABLET PO SCH (08:46)
[2022-03-24] MEDS: LISINOPRIL-HCTZ 20-12.5 MG 1 EACH TAB PO SCH (08:46)
[2022-03-24] MEDS: ATORVASTATIN 20 MG TAB PO SCH (08:46)
[2022-03-24] MEDS: BUTALBITAL ACETAMINOPHN PO SCH (08:47)
[2022-03-24] MEDS: PANTOPRAZOLE 40 MG/10 ML VIAL IVP SCH (08:47)
[2022-03-24] MEDS: HYDROmorphone 1 MG/ML 1 ML SYRINGE IVP PRN ×5 (09:02→22:39)
[2022-03-24 09:36] LABS: Chol/HDL Ratio 2.24 Ratio; LDL Cholesterol,Calculated 59.1 mg/dL (0.0-131.0); VLDL Calculation 19.38 mg/dL (5.00-40.00)
[2022-03-24] MEDS ORDERED: NITROGLYCERIN SL TABS 0.4 MG TAB SUBLINGUAL PRN ×2 (13:00→13:21)
[2022-03-24] MEDS ORDERED: ALPRAZolam 0.5 MG TAB PO PRN ×2 (13:00→13:21)
[2022-03-24] MEDS ORDERED: ALPRAZolam 0.25 MG TAB PO PRN ×2 (13:00→13:21)
[2022-03-24] MEDS ORDERED: ASPIRIN 325 MG TAB PO STA ×2 (13:00→13:21)
[2022-03-24] MEDS ORDERED: ATORVASTATIN 80 MG TAB PO STA ×2 (13:00→13:21)
--- NOTE | 2022-03-24 13:21 | P.CRDCN ---
History of Present Illness History of present illness: HISTORY OF PRESENTING ILLNESS This is a pleasant 61 year old male with history of coronary artery calcifications by prior CT, history of DVT, hypertension, hyperlipidemia, pulmonary embolism. He does have strong family history of CAD. He has been dealing with back surgery and back pain and admits she is scheduled for back surgery in approximately 1-2 months. He presented with episodes of feeling nauseous and some epigastric pain. He denies any diarrhea however started throwing up and could not keep any food down. He states this occurred on and came to emergency department and initial troponin 0.029. He then had been feeling somewhat better and was discharged home however had recurrence of the nausea and vomiting and troponinselevated at 0.1, 0.2, 0.28, 0.285. He denies any chest pain or pressure. He has chronic back pain however is more positional. He denies any shortness of breath. He does have occasional episodes of diaphoresis however nothing changed from prior. He does follow with Dr. Zhou and states he had a CT calcium score with score in the 3000s and therefore a stress test was performed which showed no inducible ischemia per patient. Denies seeing a rehabilitation services manager. CT abdomen and pelvis showed no acute process, no aneurysm. REVIEW OF SYSTEMS At the time of my exam: CONSTITUTIONAL: Denies fever or chills. CARDIOVASCULAR: Denies chest pain, +mild chronic shortness of breath, no orthopnea, PND or palpitations. RESPIRATORY: Denies cough. GASTROINTESTINAL: Denies abdominal pain, diarrhea, constipation, +nausea/vomiting. MUSCULOSKELETAL: Denies myalgias. NEUROLOGIC: Denies numbness, tingling or weakness. ENDOCRINE: Denies fatigue, weight change, polydipsia or polyurina. GENITOURINARY: Denies burning, hematuria or urgency with micturation. HEMATOLOGIC: Denies history of anemia or bleeding. PHYSICAL EXAMINATION Vital signs reviewed. CONSTITUTIONAL: No apparent distress. HEENT: Head is normocephalic. Pupils are equal, round. Sclerae anicteric. Mucous membranes of the mouth are moist. No JVD. No carotid bruit. CHEST EXAMINATION: Lungs are clear to auscultation. No chest wall tenderness is noted on palpation or with deep breathing. HEART EXAMINATION: Regular rate and rhythm. S1, S2 heard. No murmurs, gallops or rub. ABDOMEN: Soft, nontender. Positive bowel sounds. EXTREMITIES: 2+ peripheral pulses, no lower extremity edema and no calf tenderness. NEUROLOGIC EXAMINATION: Patient is awake, alert and oriented x3. ASSESSMENT 1. NSTEMI, unclear type I or type II without any obvious angina 2. Coronary artery calcifications 3. Family history of CAD 4. Nausea and vomiting, appears to have improved PLAN Patient without any obvious angina-type symptoms however does have significantly elevated troponins. It does not appear any of his nausea is angina related however given multiuple risk factors and prior negative stress testing discussed definitive diagnosis with heart catheterization and patient is agreeable. [facility] tomorrow 03/25. Past Medical History Past Medical History: Deep Vein Thrombosis (DVT), GERD/Reflux, Hyperlipidemia, Hypertension, Pulmonary Embolus (PE) Additional Past Medical History / Comment(s): Chronic back pain and follows with [facility] pain clinic. DVT 1989-LT GROIN-ALSO TURNED INTO PE. DVT 2012-LT GROIN, son had postive COVID test 04/10/21- pt had contact then but never had symptoms. History of Any Multi-Drug Resistant Organisms: None Reported Past Surgical History: Back Surgery Additional Past Surgical History / Comment(s): Back surgery x3 (1989/1993/2016) temporary Ashley filter placement and removal Past Anesthesia/Blood Transfusion Reactions: No Reported Reaction Past Psychological History: No Psychological Hx Reported Smoking Status: Current every day smoker Past Alcohol Use History: None Reported Additional Past Alcohol Use History / Comment(s): smokes 1-2 cig daily, started smokinge ago , USES CHEWING TOBACCO SINCE 2013-MIGHT HAVE Past Drug Use History: None Reported Additional Drug Use History / Comment(s): USES [employer] OIL NEEDED - Past Family History Father Family Medical History: Deep Vein Thrombosis (DVT) Additional Family Medical History / Comment(s): . Mother Additional Family Medical History / Comment(s): Mother is alive at age 79 with no major medical problems. Brother(s) Additional Family Medical History / Comment(s): Patient has 1 sister with no major medical problems. Patient does not have any brothers. Daughter(s) Additional Family Medical History / Comment(s): . Medications and Allergies Home Medications Medication Instructions Recorded Confirmed Type Atorvastatin [Lipitor] 20 mg PO DAILY 02/09/16 03/23/22 History Lisinopril-Hctz 20-12.5 mg 1 tab PO DAILY 02/09/16 03/23/22 History [Zestoretic 20-12.5] Pantoprazole [Protonix] 40 mg PO DAILY 02/09/16 03/23/22 History Rivaroxaban [Xarelto] 20 mg PO W/SUPPER 02/09/16 03/23/22 History Baclofen [Lioresal] 10 mg PO BID PRN 02/28/21 03/23/22 History Pregabalin [Lyrica] 200 mg PO TID 02/28/21 03/23/22 History clonazePAM [KlonoPIN] 0.5 mg PO HS 02/28/21 03/23/22 History Butalbital-Acetaminophn 50-325 1 tab PO DAILY 03/23/22 03/23/22 History Cholecalciferol [Vitamin D3 (25 50 mcg PO DAILY 03/23/22 03/23/22 History Mcg = 1000 Iu)] Tamsulosin [Flomax] 0.4 mg PO HS 03/23/22 03/23/22 History Allergies Allergy/AdvReac Type Severity Reaction Status Date / Time morphine Allergy Unknown "vomitting, Verified 03/23/22 18:58 out of it" Physical Exam Vitals: Vital Signs Temp Pulse Pulse Resp BP BP Pulse Ox 03/24/22 12:05 55 L 18 148/74 98 03/24/22 10:24 59 L 18 03/24/22 08:43 97.2 F L 59 L 18 124/71 95 03/24/22 04:00 98.1 F 55 L 18 147/60 94 L 03/24/22 02:00 61 18 03/24/22 00:00 97.9 F 61 18 120/64 95 03/23/22 20:00 61 18 159/81 98 03/23/22 18:50 62 18 184/88 96 03/23/22 17:00 64 18 186/80 98 03/23/22 16:21 97.9 F 79 18 159/87 96 03/23/22 14:27 63 18 100 Intake and Output 03/23/22 03/24/22 03/24/22 22:59 06:59 14:59 Intake Total 0 74.341 Output Total 50 Balance -50 74.341 Intake: Intake, IV Titration 74.341 Amount Heparin Sod,Pork in 0.45% 74.341 NaCl 25,000 unit In 0.45 % NaCl 1 250ml.bag @ 8.32 UNITS/KG/HR 10.001 mls/ hr IV .Q24H [facility] Rx#: [id number] Oral 0 Output: Emesis 50 Other: Voiding Method Toilet Toilet Toilet # Voids 2 Weight 120.202 kg Results 03/24/22 05:01 03/23/22 14:25 Cardiac Enzymes 03/23/22 03/23/22 03/23/22 Range/Units 14:25 14:25 16:31 AST 33 (17-59) U/L Troponin I 0.117 H* 0.244 H* (0.000-0.034) ng/mL 03/23/22 03/23/22 Range/Units 18:59 22:26 AST (17-59) U/L Troponin I 0.287 H* 0.285 H* (0.000-0.034) ng/mL Coagulation 03/23/22 03/24/22 03/24/22 Range/Units 14:25 05:01 12:01 PT 11.2 11.4 (9.0-12.0) sec APTT 24.4 37.3 H 52.7 H (22.0-30.0) sec Lipids 03/24/22 Range/Units 05:01 Triglycerides 96.90 (0.00-149.00) mg/dL Cholesterol 142.00 (0.00-200.00) mg/dL HDL Cholesterol 63.50 H (40.00-60.00) mg/dL Cholesterol/HDL Ratio 2.24 Ratio CBC 03/23/22 03/24/22 Range/Units 14:25 05:01 WBC 8.4 8.0 (3.8-10.6) k/uL RBC 5.31 4.68 (4.30-5.90) m/uL Hgb 15.3 13.3 (13.0-17.5) gm/dL Hct 44.9 40.1 (39.0-53.0) % Plt Count 212 193 (150-450) k/uL Comprehensive Metabolic Panel 03/23/22 Range/Units 14:25 Sodium 137 (137-145) mmol/L Potassium 3.8 (3.5-5.1) mmol/L Chloride 98 (98-107) mmol/L Carbon Dioxide 29 (22-30) mmol/L BUN 8 L (9-20) mg/dL Creatinine 0.87 (0.66-1.25) mg/dL Glucose 110 H (74-99) mg/dL Calcium 10.2 (8.4-10.2) mg/dL AST 33 (17-59) U/L ALT 21 (4-49) U/L Alkaline Phosphatase 89 (38-126) U/L Total Protein 8.2 (6.3-8.2) g/dL Albumin 4.9 (3.5-5.0) g/dL Current Medications Generic Name Dose Route Start Last Admin Trade Name Freq PRN Reason Stop Dose Admin Alprazolam 0.25 mg 03/24/22 13:00 Alprazolam 0.25 Mg Tab PO Q6HR PRN Mild Anxiety Alprazolam 0.5 mg 03/24/22 13:00 Alprazolam 0.5 Mg Tab PO Q6HR PRN Moderate Anxiety Aspirin 325 mg 03/24/22 09:00 03/24/22 08:46 Aspirin 325 Mg Tab PO 325 mg DAILY [facility] Administration Atorvastatin Calcium 20 mg 03/24/22 09:00 03/24/22 08:46 Atorvastatin 20 Mg Tab PO 20 mg DAILY [facility] Administration Atorvastatin Calcium 80 mg 03/24/22 13:00 Atorvastatin 80 Mg Tab PO 03/24/22 13:01 ONCE STA Baclofen 10 mg 03/23/22 19:05 Baclofen 10 Mg Tab PO BID PRN Muscle Pain Cholecalciferol 50 mcg 03/24/22 09:00 03/24/22 08:46 Cholecalciferol 25 Mcg (1000 Iu) Tablet PO 50 mcg DAILY [facility] Administration Clonazepam 0.5 mg 03/23/22 21:00 03/23/22 21:25 Clonazepam 0.5 Mg Tab PO 0.5 mg HS [facility]EN Administration Lisinopril/HCTZ 1 each 03/24/22 09:00 03/24/22 08:46 Lisinopril-Hctz 20-12.5 Mg 1 Each Tab PO 1 each DAILY [facility] Administration Heparin Sodium (Porcine) 0 unit 03/23/22 22:05 03/24/22 06:16 Heparin Sodium 1,000 Un/Ml (10ml Vl) IV 2,550 unit PER PROTOCOL PRN Administration Low PTT Protocol Hydromorphone HCl 1 mg 03/23/22 22:16 03/24/22 12:02 Hydromorphone 1 Mg/Ml 1 Ml Syringe IVP 1 mg Q3HR PRN Administration Pain Sodium Chloride 1,000 mls @ 100 mls/hr 03/23/22 19:15 03/24/22 06:14 Saline 0.9% IV 100 mls/hr .Q10H [facility] Administration Heparin Sodium/Sodium Chloride 250 mls @ 10.001 mls/hr 03/23/22 22:15 03/24/22 06:17 25,000 unit/ Sodium Chloride IV 10.32 units/kg/hr .Q24H [facility] 12.405 mls/hr Titration Protocol 8.32 UNITS/KG/HR Heparin Sodium (Porcine) 10, 1,001 mls @ 999 mls/hr 03/25/22 07:00 000 unit/ Sodium Chloride IRRIGATION 03/25/22 23:00 ONCE PRN INTRA-OP Heparin Sodium (Porcine) 2,500 250.5 mls @ 250 mls/hr 03/25/22 07:00 unit/ Sodium Chloride IRRIGATION 03/25/22 23:00 ONCE PRN INTRA-OP Metoclopramide HCl 5 mg 03/23/22 22:17 03/23/22 22:48 Metoclopramide 5 Mg/Ml 2 Ml Vial IVP 5 mg Q6HR PRN Administration Nausea And Vomiting Nitroglycerin 0.4 mg 03/23/22 15:31 Nitroglycerin Sl Tabs 0.4 Mg Tab SUBLINGUAL Q5M PRN Chest Pain Nitroglycerin 1 inch 03/23/22 18:00 03/24/22 12:02 Nitroglycerin Oint 1 Inch/Gm Packet TOPICAL 1 inch Q6HR [facility] Administration Nitroglycerin 0.4 mg 03/24/22 13:00 Nitroglycerin Sl Tabs 0.4 Mg Tab SUBLINGUAL Q5M PRN Chest Pain Non-Formulary Medication 1 tab 03/24/22 09:00 03/24/22 08:47 Butalbital-Acetaminophn 50-325 PO Not Given DAILY [facility] Ondansetron HCl 4 mg 03/23/22 19:04 03/23/22 19:25 Ondansetron 4 Mg/2 Ml Vial IVP 4 mg Q6HR PRN Administration Nausea And Vomiting Pantoprazole Sodium 40 mg 03/23/22 22:30 03/24/22 08:47 Pantoprazole 40 Mg/10 Ml Vial IVP 40 mg DAILY [facility] Administration Pregabalin 200 mg 03/23/22 22:00 03/24/22 08:46 Pregabalin 100 Mg Cap PO 200 mg TID [facility] Administration Tamsulosin HCl 0.4 mg 03/23/22 21:00 03/23/22 21:25 Tamsulosin 0.4 Mg Cap.Er.24h PO 0.4 mg HS [facility] Administration Intake and Output 03/23/22 03/24/22 03/24/22 22:59 06:59 14:59 Intake Total 0 74.341 Output Total 50 Balance -50 74.341 Intake: Intake, IV Titration 74.341 Amount Heparin Sod,Pork in 0.45% 74.341 NaCl 25,000 unit In 0.45 % NaCl 1 250ml.bag @ 8.32 UNITS/KG/HR 10.001 mls/ hr IV .Q24H [facility] Rx#: [id number] Oral 0 Output: Emesis 50 Other: Voiding Method Toilet Toilet Toilet # Voids 2 Weight 120.202 kg 03/24/22 05:01 03/23/22 14:25
[2022-03-24] MEDS: HEPARIN SOD,PORK IN 0.45% NACL 25,000 UNIT in 0.45% NACL 1 250ML.BAG IV SCH (16:16)
[2022-03-24] MEDS: clonazePAM 0.5 MG TAB PO SCH (19:53)
[2022-03-24] MEDS: TAMSULOSIN 0.4 MG CAP.ER.24H PO SCH (19:53)
--- NOTE | 2022-03-24 20:28 | P.HPIM ---
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 He was also complaining of headache. Patient states that he felt nauseated and felt like sweating and freezing and episode of vomiting followed by dry heaves. Patient presented with similar co mplaints on and was seen in the ER patient was given medications with improvement of symptoms and was discharged home. Underwent CT thoracic aorta negative angiogram of chest and abdomen pelvis. No evidence of aneurysmal arterial or dissection. Abdominal x-ray showed no acute abdomen. EKG showed sinus bradycardia with heart rate 58 Laboratory data showed WBC 8.4 hemoglobin 13.3 and platelets 212 BUN 8 and creatinine 0.87 Troponin 0.117, 0.244 and 0.287 proBNP is 942., Lipase 54 amylase 48. Patient states that his CT coronary calcium score and underwent stress test at [facility] which was negative as informed by his primary care physician. Patient follows with . Review of Systems Constitutional: Patient denies any fever or chills . no Generalized weakness. Abdomen: Patient does have nausea vomiting and dry heaves. No complaints of abd. pain Cardiovascular: Patient denies any chest pain or short of breath no palpitations. Respiratory: patient denied any cough . no sputum production. No shortness of breath Neurologic: Patient denied any numbness or tingling headache. Musculoskeletal: Patient denies any complaints of joint swelling or deformity. Back pain. Skin: Negative Psychiatric: Negative Endocrine: No heat or cold intolerance. No recent weight gain. Genitourinary: No dysuria or hematuria. All other 14 point ROS negative except the above Past Medical History Past Medical History: Deep Vein Thrombosis (DVT), GERD/Reflux, Hyperlipidemia, Hypertension, Pulmonary Embolus (PE) Additional Past Medical History / Comment(s): Chronic back pain and follows with [facility] pain clinic. DVT 1989-LT GROIN-ALSO TURNED INTO PE. DVT 2012-LT GROIN, son had postive COVID test 04/10/21- pt had contact then but never had symptoms. History of Any Multi-Drug Resistant Organisms: None Reported Past Surgical History: Back Surgery Additional Past Surgical History / Comment(s): Back surgery x3 (1989/1993/2016) temporary [place] filter placement and removal Past Anesthesia/Blood Transfusion Reactions: No Reported Reaction Past Psychological History: No Psychological Hx Reported Smoking Status: Current every day smoker Past Alcohol Use History: None Reported Additional Past Alcohol Use History / Comment(s): smokes 1-2 cig daily, started smokinge ago , USES CHEWING TOBACCO SINCE 2013-MIGHT HAVE Past Drug Use History: None Reported Additional Drug Use History / Comment(s): USES MARIJUANA OIL NEEDED - Past Family History Father Family Medical History: Deep Vein Thrombosis (DVT) Additional Family Medical History / Comment(s): . Mother Additional Family Medical History / Comment(s): Mother is alive at age 79 with no major medical problems. Brother(s) Additional Family Medical History / Comment(s): Patient has 1 sister with no major medical problems. Patient does not have any brothers. Daughter(s) Additional Family Medical History / Comment(s): . Medications and Allergies Home Medications Medication Instructions Recorded Confirmed Type Atorvastatin [Lipitor] 20 mg PO DAILY 02/09/16 03/23/22 History Lisinopril-Hctz 20-12.5 mg 1 tab PO DAILY 02/09/16 03/23/22 History [Zestoretic 20-12.5] Pantoprazole [Protonix] 40 mg PO DAILY 02/09/16 03/23/22 History Rivaroxaban [Xarelto] 20 mg PO W/SUPPER 02/09/16 03/23/22 History Baclofen [Lioresal] 10 mg PO BID PRN 02/28/21 03/23/22 History Pregabalin [Lyrica] 200 mg PO TID 02/28/21 03/23/22 History clonazePAM [KlonoPIN] 0.5 mg PO HS 02/28/21 03/23/22 History Butalbital-Acetaminophn 50-325 1 tab PO DAILY 03/23/22 03/23/22 History Cholecalciferol [Vitamin D3 (25 50 mcg PO DAILY 03/23/22 03/23/22 History Mcg = 1000 Iu)] Tamsulosin [Flomax] 0.4 mg PO HS 03/23/22 03/23/22 History Allergies Allergy/AdvReac Type Severity Reaction Status Date / Time morphine Allergy Unknown "vomitting, Verified 03/23/22 18:58 out of it" Physical Exam Vitals: Vital Signs Temp Pulse Pulse Resp BP BP Pulse Ox 03/24/22 10:24 59 L 18 03/24/22 08:43 97.2 F L 59 L 18 124/71 95 03/24/22 04:00 98.1 F 55 L 18 147/60 94 L 03/24/22 02:00 61 18 03/24/22 00:00 97.9 F 61 18 120/64 95 03/23/22 20:00 61 18 159/81 98 03/23/22 18:50 62 18 184/88 96 03/23/22 17:00 64 18 186/80 98 03/23/22 16:21 97.9 F 79 18 159/87 96 03/23/22 14:27 63 18 100 03/23/22 13:08 98.5 F 66 22 189/86 98 Intake and Output 03/23/22 03/24/22 03/24/22 22:59 06:59 14:59 Intake Total 0 74.341 Output Total 50 Balance -50 74.341 Intake: Intake, IV Titration 74.341 Amount Heparin Sod,Pork in 0.45% 74.341 NaCl 25,000 unit In 0.45 % NaCl 1 250ml.bag @ 8.32 UNITS/KG/HR 10.001 mls/ hr IV .Q24H [facility] Rx#: [id number] Oral 0 Output: Emesis 50 Other: Voiding Method Toilet Toilet Toilet # Voids 2 Weight 120.202 kg PHYSICAL EXAMINATION: Patient is lying in the bed comfortably, no acute distress, awake alert and oriented.. HEENT: Normocephalic. Neck is supple. Pupils reactive. Nostrils clear. Oral cavity is moist. Neck reveals no JVD, carotid bruits, or thyromegaly. CHEST EXAMINATION: Trachea is central. Symmetrical expansion. Bibasilar diminished sounds. No wheezing or rhonchi. Nonlabored breathing. CARDIAC: Normal S1, S2 with no gallops. No murmurs ABDOMEN: Soft. Bowel sounds present. Nontender. No organomegaly. No abdominal bruits. Extremities: reveal no edema. No clubbing or cyanosis Neurologically awake, alert, oriented x3 with well-coordinated movements. No focal deficits noted Skin: No rash or skin lesions. Psychiatric: Coperative. Nonsuicidal, Musculoskeletal: No joint swelling or deformity. Normal range of motion. Results CBC & Chem 7: 03/24/22 05:01 03/23/22 14:25 Labs: Abnormal Lab Results - Last 24 Hours (Table) 03/23/22 03/23/22 03/23/22 Range/Units 14:25 14:25 16:31 APTT (22.0-30.0) sec BUN 8 L (9-20) mg/dL Glucose 110 H (74-99) mg/dL Troponin I 0.117 H* 0.244 H* (0.000-0.034) ng/mL HDL Cholesterol (40.00-60.00) mg/dL 03/23/22 03/23/22 03/24/22 Range/Units 18:59 22:26 05:01 APTT (22.0-30.0) sec BUN (9-20) mg/dL Glucose (74-99) mg/dL Troponin I 0.287 H* 0.285 H* (0.000-0.034) ng/mL HDL Cholesterol 63.50 H (40.00-60.00) mg/dL 03/24/22 Range/Units 05:01 APTT 37.3 H (22.0-30.0) sec BUN (9-20) mg/dL Glucose (74-99) mg/dL Troponin I (0.000-0.034) ng/mL HDL Cholesterol (40.00-60.00) mg/dL Thrombosis Risk Factor Assmnt - DVT/VTE Prophylaxis DVT/VTE Prophylaxis: Pharmacologic Prophylaxis ordered Assessment and Plan Assessment: Acute non-ST elevated AR with elevated troponin level Nausea vomiting and dry heaves. History of DVT status post IVC filter and also on currently Xarelto Chronic back pain and with history of back surgeries x3 Hypertension Hyperlipidemia GERD Currently everyday smoker DVT prophylaxis Plan: Patient will be continued on telemetry monitoring. Continue with heparin drip and trend troponins. Cardiology was consulted. Patient had recent negative stress test. 2D echocardiogram was ordered and patient may need cardiac catheterization. Continue medications and follow-up closely. Discussed with the patient and his at bedside in detail. Smoking cessation has been counseled extensively. Time with Patient: Greater than 30
[2022-03-24] MEDS: NICOTINE 21MG/24HR PATCH TRANSDERM SCH (20:32)
[2022-03-25] MEDS: HYDROmorphone 1 MG/ML 1 ML SYRINGE IVP PRN ×6 (02:15→22:49)
[2022-03-25] MEDS: CHOLECALCIFEROL 25 MCG (1000 IU) TABLET PO SCH (05:41)
[2022-03-25] MEDS: PREGABALIN 100 MG CAP PO SCH ×3 (05:41→19:57)
[2022-03-25] MEDS: ASPIRIN 325 MG TAB PO SCH (05:41)
[2022-03-25] MEDS: PANTOPRAZOLE 40 MG/10 ML VIAL IVP SCH (05:41)
[2022-03-25] MEDS: BUTALBITAL ACETAMINOPHN PO SCH (05:42)
[2022-03-25] MEDS: ATORVASTATIN 20 MG TAB PO SCH (05:43)
[2022-03-25] MEDS ORDERED: ATORVASTATIN 80 MG TAB PO ONE (06:00)
[2022-03-25 06:07] LABS: Glucose,Whole Blood 82 mg/dL (70-110)
[2022-03-25 06:20] LABS: Basophils % (A) 0 %; Eosinophils % (A) 1 %; HCT 37.8 % (39.0-53.0); HGB 12.8 gm/dL (13.0-17.5); Lymphocytes # (A) 1.4 k/uL (1.0-4.8); Lymphocytes % (A) 29 %; MCH 29.3 pg (25.0-35.0); MCV 86.3 fL (80.0-100.0); Mean Platelet Volume 8.4; Monocytes # (A) 0.3 k/uL (0-1.0); Monocytes % (A) 6 %; Neutrophils # (A) 2.9 k/uL (1.3-7.7); Neutrophils % (A) 60 %; Platelet Count 135 k/uL (150-450); RBC 4.38 m/uL (4.30-5.90); RDW 15.4 % (11.5-15.5); WBC 4.8 k/uL (3.8-10.6)
[2022-03-25] MEDS: LISINOPRIL-HCTZ 20-12.5 MG 1 EACH TAB PO SCH (06:21)
[2022-03-25] MEDS: SODIUM CHLORIDE 0.9% 1,000 ML IV SCH ×2 (06:21→19:57)
[2022-03-25] MEDS: NICOTINE 21MG/24HR PATCH TRANSDERM SCH (06:21)
[2022-03-25 06:29] LABS: African American GFR (CKD) >90 (>60 ml/min/1.73 sqM); Anion Gap 8 mmol/L; Blood Urea Nitrogen 6 mg/dL (9-20); Calcium 8.5 mg/dL (8.4-10.2); Carbon Dioxide 25 mmol/L (22-30); Chloride 104 mmol/L (98-107); Glucose 90 mg/dL (74-99); Non-African American GFR(CKD) >90 (>60 ml/min/1.73 sqM); Sodium 137 mmol/L (137-145)
[2022-03-25 06:34] LABS: Potassium 3.3 mmol/L (3.5-5.1)
[2022-03-25] MEDS ORDERED: HEPARIN SODIUM,PORCINE 10,000 UNIT in SODIUM CHLORIDE 0.9% 1,000 ML IRRIGATION PRN ×4 (07:00)
[2022-03-25] MEDS ORDERED: HEPARIN SODIUM,PORCINE 2,500 UNIT in SODIUM CHLORIDE 0.9% 250 ML IRRIGATION PRN ×4 (07:00)
--- NOTE | 2022-03-25 09:14 | P.PN ---
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 He was also complaining of headache. Patient states that he felt nauseated and felt like sweating and freezing and episode of vomiting followed by dry heaves. Patient presented with similar complaints on and was seen in the ER patient was given medications with improvement of symptoms and was discharged home. Underwent CT thoracic aorta negative angiogram of chest and abdomen pelvis. No evidence of aneurysmal arterial or dissection. Abdominal x-ray showed no acute abdomen. EKG showed sinus bradycardia with heart rate 58 Laboratory data showed WBC 8.4 hemoglobin 13.3 and platelets 212 BUN 8 and creatinine 0.87 Troponin 0.117, 0.244 and 0.287 proBNP is 942., Lipase 54 amylase 48. Patient states that his CT coronary calcium score and underwent stress test at [facility] which was negative as informed by his primary care physician. Patient follows with . 03/25: Patient has been seen by cardiology with plan for left heart catheterization today. Patient is continued on heparin drip, aspirin 325 mg daily, Zestoretic. Xarelto is on hold. Echocardiogram has been ordered. Patient denies chest pain, epigastric pain. Nausea and vomiting is controlled. Patient concerned about laying flat for the procedure due to chronic back pain. REVIEW OF SYSTEMS Constitutional: No fever, no chills, no night sweats. No weight change. No weakness, fatigue or lethargy. No daytime sleepiness. EENT: No headache. No blurred vision or double vision, no loss of vision. No loss of Hearing, no ringing in the ears, no dizziness. No nasal drainage or congestion. No epistaxis. No sore throat. Lungs: No shortness of breath, cough, no sputum production. No wheezing. Cardiovascular: Denies chest pain, no lower extremity edema. No palpitations. No paroxysmal nocturnal dyspnea. No orthopnea. No lightheadedness or dizziness. No syncopal episodes. Abdominal: No abdominal pain. Reported nausea, reported vomiting-improved. No diarrhea. No constipation. No bloody or tarry stools. No loss of appetite. Genitourinary: No dysuria, increased frequency, urgency. No urinary retention. Musculoskeletal: No myalgias. No muscle weakness, no gait dysfunction, no frequent falls. Chronic back pain. CHronic neck pain. Integumentary: No wounds, no lesions. No rash or pruritus. No unusual bruising. No change in hair or nails. Neurologic: No aphasia. No facial droop. No change in mentation. No head injury. No headache. No paralysis. No paresthesia. Psychiatric: No depression. No anxiety. No mood swings. Endocrine: No abnormal blood sugars. No weight change. No excessive sweating or thirst. No cold intolerance. PHYSICAL EXAMINATION Gen: This is a 61-year-old male. He is resting in bed and appears to be comfortable. HEENT: Head is atraumatic, normocephalic. Pupils equal, round. Sclerae is anicteric. NECK: Supple. No JVD. No lymphadenopathy. No thyromegaly. LUNGS: Clear to auscultation. No wheezes or rhonchi. No intercostal retractions. HEART: Regular rate and rhythm. No murmur. ABDOMEN: Soft. Bowel sounds are present. No masses. No tenderness. EXTREMITIES: No pedal edema. No calf tenderness. NEUROLOGICAL: Patient is awake, alert and oriented x3. Cranial nerves 2 through 12 are grossly intact. ASSESSMENT AND PLAN 1. Acute non-ST elevated myocardial infarction. Patient has been seen by cardiology with plan for cardiac catheterization today. Continue patient on aspirin 325 mg daily, atorvastatin 20 mg daily. 2. Nausea, vomiting and dry heaves with unclear etiology. Symptoms seem to have resolved. Continue Zofran as needed. 3. History of DVT status post IVC filter and Xarelto. Patient is currently on a heparin drip and will be resumed on Xarelto following procedure. 4. Chronic back pain with history of back surgery 3. Continue patient on baclofen 10 mg twice daily as needed, Lyrica 200 mg 3 times daily. 5. Hypertension. Continue Zestoretic. 6. Hyperlipidemia. Continue atorvastatin. 7. GERD. Continue Protonix 40 mg daily. 8. Tobacco use and dependence. 9. Recent CT calcium score of 3000, stress test showed no in [place] ischemia per patient. DISCHARGE PLAN Return home. Impression and plan of care have been directed as dictated by the signing physician. Lori Christy nurse practitioner acting as scribe for signing physician. Objective - Vital Signs Vital signs: Vital Signs Temp 98.4 F 03/25/22 03:53 Pulse 57 L 03/25/22 03:53 Resp 18 03/25/22 03:53 BP 129/60 03/25/22 03:53 Pulse Ox 99 03/25/22 03:53 FiO2 Intake & Output 03/24/22 03/25/22 03/25/22 18:59 06:59 18:59 Intake Total 1823.843 240 Output Total 475 700 Balance 1348.843 -460 Weight 120.2 kg Intake: Intake, IV Titration 1323.843 Amount Heparin Sod,Pork in 0.45% 123.843 NaCl 25,000 unit In 0.45 % NaCl 1 250ml.bag @ 8.32 UNITS/KG/HR 10.001 mls/ hr IV .Q24H [facility] Rx#: [id number] Sodium Chloride 0.9% 1, 1200 000 ml @ 100 mls/hr IV . Q10H [facility] Rx#:[id number] Oral 500 240 Output: Urine 475 700 Other: Voiding Method Toilet Toilet # Voids 1 - Labs CBC & Chem 7: 03/25/22 05:57 03/25/22 05:57 Labs: Abnormal Lab Results - Last 24 Hours (Table) 03/24/22 03/24/22 03/25/22 Range/Units 05:01 12:01 05:57 Hgb (13.0-17.5) gm/dL Hct (39.0-53.0) % Plt Count (150-450) k/uL APTT 52.7 H 49.2 H (22.0-30.0) sec Potassium (3.5-5.1) mmol/L BUN (9-20) mg/dL HDL Cholesterol 63.50 H (40.00-60.00) mg/dL 03/25/22 03/25/22 Range/Units 05:57 05:57 Hgb 12.8 L (13.0-17.5) gm/dL Hct 37.8 L (39.0-53.0) % Plt Count 135 L (150-450) k/uL APTT (22.0-30.0) sec Potassium 3.3 L (3.5-5.1) mmol/L BUN 6 L (9-20) mg/dL HDL Cholesterol (40.00-60.00) mg/dL
[2022-03-25] MEDS: ONDANSETRON 4 MG/2 ML VIAL IVP PRN (09:25)
[2022-03-25] MEDS ORDERED: VERAPAMIL 2.5 MG/ML 2 ML AMP ONE (12:23)
[2022-03-25] MEDS ORDERED: HEPARIN SODIUM 1,000 UN/ML (10ML VL) ONE (12:23)
[2022-03-25] MEDS ORDERED: fentaNYL (PF) 50 MCG/ML 2 ML AMP ONE (12:44)
[2022-03-25] MEDS ORDERED: MIDAZOLAM 2 MG/2 ML VIAL IV ONE (12:48)
[2022-03-25] MEDS ORDERED: fentaNYL (PF) 50 MCG/ML 2 ML AMP IV ONE (12:48)
--- NOTE | 2022-03-25 12:49 | CA ---
Transthoracic Echo Report Name: Bryant Gordon Age: 61 Gender: M : 1960 Exam Date: 03/25/2022 10:17 Exam Location: [facility] Ht (in): 74 Wt (lb): 264 Ordering Physician: Jarred De Souza MD Attending/Referring Phys: Kiss Setter Hand Jud Arreola RDCS Procedure CPT: Indications: c/p Cardiac Hx: Technical Quality: Contrast 1: Total Dose (mL): Contrast 2: Total Dose (mL): MEASUREMENTS (Male / Female) Normal Values 2D ECHO LV Diastolic Diameter PLAX 4.8 cm 4.2 - 5.9 / 3.9 - 5.3 cm LV Systolic Diameter PLAX 3.3 cm IVS Diastolic Thickness 1.1 cm 0.6 - 1.0 / 0.6 - 0.9 cm LVPW Diastolic Thickness 1.2 cm 0.6 - 1.0 / 0.6 - 0.9 cm LV Relative Wall Thickness 0.5 RV Internal Dim ED PLAX 3.3 cm LA Systolic Diameter LX 3.7 cm 3.0 - 4.0 / 2.7 - 3.8 cm LA Volume 92.2 cm??? 18 - 58 / 22 - 52 cm??? M-MODE Aortic Root Diameter MM 3.0 cm LA Systolic Diameter MM 3.8 cm LA Ao Ratio MM 1.3 MV E Point Septal Separation 0.6 cm AV Cusp Separation MM 2.0 cm DOPPLER MV Area PHT 4.2 cm??? Mitral E Point Velocity 87.4 cm/s Mitral A Point Velocity 83.1 cm/s Mitral E to A Ratio 1.1 MV Deceleration Time 181.8 ms MV E' Velocity 7.8 cm/s Mitral E to MV E' Ratio 11.1 FINDINGS Left Ventricle Left ventricular ejection fraction is estimated at 55-60 %.left ventricular cavity size normal. Mild concentric left ventricular hypertrophy. Right Ventricle Normal right ventricular size and function. Right Atrium Normal right atrial size. Normal right atrial size. Left Atrium Severely increased left atrial volume. Mitral Valve Structurally normal mitral valve. Mild mitral regurgitation. Aortic Valve Trileaflet aortic valve.trace to mild aortic regurgitation. Tricuspid Valve Structurally normal tricuspid valve.trace to mild tricuspid regurgitation. Pulmonic Valve Structurally normal pulmonic valve. Pericardium Normal pericardium. Aorta Normal size aortic root and proximal ascending aorta. CONCLUSIONS 1. Normal ventricle size and systolic function 2. Mild mitral with trace to mild aortic and tricuspid regurgitation 3. No pericardial effusion Previewed by: Dr. Julián Cardenas MD (Electronically Signed) Final Date: 25 March 2022 12:48
[2022-03-25] MEDS ORDERED: LIDOCAINE 1% INJ 10MG/ML (30 ML VIAL-PF) SQ ONE (12:51)
[2022-03-25] MEDS ORDERED: IV FLUID CONTINUATION 450 ML IV ONE (12:53)
[2022-03-25] MEDS ORDERED: VERAPAMIL SYRINGE (5 MG/10 ML) INTRAARTER ONE (12:56)
[2022-03-25] MEDS ORDERED: HEPARIN SODIUM 1,000 UN/ML (10ML VL) IV ONE (13:07)
[2022-03-25] MEDS ORDERED: IOPAMIDOL-370 125ML BTL INJ ONE (13:13)
--- NOTE | 2022-03-25 13:18 | P.CARDCATH ---
Description of Procedure: PROCEDURES PERFORMED: Left heart catheterization, bilateral coronary angiography INDICATION: [] HISTORY: [] CONSENT:I have discussed the risks, benefits and alternative therapies for the above-mentioned procedure and for both sedation/analgesia as well as necessary blood product administration, if indicated, as they pertain to this patient. The patient has indicated understanding and acceptance of the risks and procedures discussed. PROCEDURE: After the risks, benefits and alternatives of the above mentioned procedure explained in detail with the patient, informed consent was obtained. Patient was taken to the catheterization lab and prepped and draped in usual fashion. 1% lidocaine was used to anesthetize the right radial artery. A 6- Peruvian sheath was placed in the right radial artery using modified Seldinger technique. Left coronary angiography was performed with a 5-Peruvian JL 3.5 catheter and right coronary angiography was performed with a 5-[place]uvian JR5 catheter in various views. A 5-[place]uvian FR5 catheter was inserted into the left ventricle and pressure measurements were obtained. The right radial sheath was removed and a TR band was placed with hemostasis achieved. The patient tolerated the procedure well. Patient was transported back to the post catheterization holding area in stable condition. Conscious Sedation: Patient was monitored under the direct supervision of vision of myself for conscious sedation using Versed and fentanyl for a total duration of [] minutes HEMODYNAMICS: Aorta: 144/76 LV: 155/10, LVEDP 24 SELECTIVE CORONARY ARTERIOGRAPHY: LEFT MAIN: The left main is a large caliber vessel which bifurcates into the LAD and circumflex. There is no significant stenosis. LEFT ANTERIOR DESCENDING CORONARY ARTERY: LAD is a large caliber vessel which wraps around to the apex. There are mild luminal irregularities of the LAD up to 10-20%. LEFT CIRCUMFLEX CORONARY ARTERY: Left circumflex is a moderate caliber vessel with mild luminal irregularities. RIGHT CORONARY ARTERY: The right coronary artery is a large caliber vessel which gives off a PDA and PLV branch and is the dominant vessel. There are mild luminal irregularities 10-30%. FINAL IMPRESSION: 1. Mild luminal irregularities up to 10 the 30% and otherwise normal coronary arteries. 2. Elevated left sided filling pressures PLAN: 1. Aggressive risk factor modification per most recent ACC/AHA guidelines. 2. Follow-up in the office in 1-2 weeks.
[2022-03-25] MEDS: TAMSULOSIN 0.4 MG CAP.ER.24H PO SCH (19:57)
[2022-03-25] MEDS: clonazePAM 0.5 MG TAB PO SCH (19:57)
[2022-03-26] MEDS: HYDROmorphone 1 MG/ML 1 ML SYRINGE IVP PRN ×2 (03:18→09:13)
[2022-03-26] MEDS: SODIUM CHLORIDE 0.9% 1,000 ML IV SCH (06:09)
[2022-03-26 07:57] LABS: African American GFR (CKD) >90 (>60 ml/min/1.73 sqM); Anion Gap 4 mmol/L; Blood Urea Nitrogen 5 mg/dL (9-20); Calcium 8.1 mg/dL (8.4-10.2); Carbon Dioxide 31 mmol/L (22-30); Chloride 101 mmol/L (98-107); Glucose 88 mg/dL (74-99); Non-African American GFR(CKD) >90 (>60 ml/min/1.73 sqM); Potassium 3.3 mmol/L (3.5-5.1); Sodium 136 mmol/L (137-145)
[2022-03-26] MEDS: PANTOPRAZOLE 40 MG/10 ML VIAL IVP SCH (09:04)
[2022-03-26] MEDS: ATORVASTATIN 20 MG TAB PO SCH (09:04)
[2022-03-26] MEDS: LISINOPRIL-HCTZ 20-12.5 MG 1 EACH TAB PO SCH (09:04)
[2022-03-26] MEDS: ASPIRIN 325 MG TAB PO SCH (09:04)
[2022-03-26] MEDS: PREGABALIN 100 MG CAP PO SCH (09:04)
[2022-03-26] MEDS: CHOLECALCIFEROL 25 MCG (1000 IU) TABLET PO SCH (09:04)
[2022-03-26] MEDS: NICOTINE 21MG/24HR PATCH TRANSDERM SCH (09:05)
[2022-03-26] MEDS: BUTALBITAL ACETAMINOPHN PO SCH (09:05)
[2022-03-26 09:11] VITALS: BP 105/67; PULSE 55; RESP 17; TEMP 98.3
--- NOTE | 2022-03-26 09:44 | P.DS ---
Providers Date of admission: 03/25/22 08:01 Expected date of discharge: 03/26/22 Attending physician: Coco Grider Consults: 03/23/22 15:31 Consult Physician Urgent Consulting Provider: Alan Eduardo Consult Reason/Comments: Cardiac evaluation and treatment, elevated troponin Do you want consulting provider notified?: Yes Primary care physician: Coco Grider [facility] Course: HISTORY OF PRESENT ILLNESS Patient is a 61-year-old male with a known history of hypertension, hyperlipidemia, history of PE/DVT currently on anticoagulation, status post [place] filter placement, currently Xarelto, chronic back pain follows with [facility] pain clinic and currently everyday smoker presents to ER with complaints of nausea and vomiting. He was also complaining of headache. Patient states that he felt nauseated and felt like sweating and freezing and episode of vomiting followed by dry heaves. Patient presented with similar complaints on and was seen in the ER patient was given medications with improvement of symptoms and was discharged home. Underwent CT thoracic aorta negative angiogram of chest and abdomen pelvis. No evidence of aneurysmal arterial or dissection. Abdominal x-ray showed no acute abdomen. EKG showed sinus bradycardia with heart rate 58 Laboratory data showed WBC 8.4 hemoglobin 13.3 and platelets 212 BUN 8 and creatinine 0.87 Troponin 0.117, 0.244 and 0.287 proBNP is 942., Lipase 54 amylase 48. Patient states that his CT coronary calcium score and underwent stress test at [facility] which was negative as informed by his primary care physician. Patient follows with . 03/25: Patient has been seen by cardiology with plan for left heart catheterization today. Patient is continued on heparin drip, aspirin 325 mg daily, Zestoretic. Xarelto is on hold. Echocardiogram has been ordered. Patient denies chest pain, epigastric pain. Nausea and vomiting is controlled. Patient concerned about laying flat for the procedure due to chronic back pain. 03/26: Yesterday, patient underwent cardiac catheterization with Dr. Morton that revealed mild luminal irregularities up to 10-30% and otherwise normal coronary arteries. Elevated left-sided filling pressures. Plan is for aggressive factor modification and follow-up in the office in one to 2 weeks. Once patient returned to his room, he was started on a full liquid diet and advanced as tolerated. This morning, patient had pancakes and toast and tolerated well, no nausea or vomiting. Patient denies any chest pain or shortness of breath, no lightheadedness or dizziness. Patient has been afebrile, heart rate in the 50s, blood pressure 137/64, pulse ox 97% on room air. Patient will be discharged home today in stable condition. DISCHARGE DIAGNOSES 1. Acute non-ST elevated myocardial infarction has been ruled out by cardiac catheterization. 2. Nausea, vomiting and dry heaves with unclear etiology. 3. History of DVT status post IVC filter and Xarelto. 4. Chronic back pain with history of back surgery 3. 5. Hypertension. 6. Hyperlipidemia. 7. GERD. 8. Tobacco use and dependence. 9. Recent CT calcium. DISCHARGE PLAN Return home. Greater than 35 minutes was utilized and coordinating patient's discharge. Impression and plan of care have been directed as dictated by the signing physician. Lori Christy nurse practitioner acting as scribe for signing physician. Patient Condition at Discharge: Good Plan - Discharge Summary Discharge Rx Participant: No New Discharge Prescriptions: New Nicotine 21Mg/24Hr Patch [Habitrol] 1 patch TRANSDERM DAILY #30 patch Cetirizine HCl [Zyrtec] 10 mg PO DAILY #30 tab Continue Rivaroxaban [Xarelto] 20 mg PO W/SUPPER Lisinopril-Hctz 20-12.5 mg [Zestoretic 20-12.5] 1 tab PO DAILY Atorvastatin [Lipitor] 20 mg PO DAILY Pantoprazole [Protonix] 40 mg PO DAILY clonazePAM [KlonoPIN] 0.5 mg PO HS Pregabalin [Lyrica] 200 mg PO TID Butalbital-Acetaminophn 50-325 1 tab PO DAILY Baclofen [Lioresal] 10 mg PO BID PRN PRN Reason: Muscle Pain Tamsulosin [Flomax] 0.4 mg PO HS Cholecalciferol [Vitamin D3 (25 Mcg = 1000 Iu)] 50 mcg PO DAILY Discharge Medication List Atorvastatin [Lipitor] 20 mg PO DAILY 02/09/16 [History] Lisinopril-Hctz 20-12.5 mg [Zestoretic 20-12.5] 1 tab PO DAILY 02/09/16 [History] Pantoprazole [Protonix] 40 mg PO DAILY 02/09/16 [History] Rivaroxaban [Xarelto] 20 mg PO W/SUPPER 02/09/16 [History] Baclofen [Lioresal] 10 mg PO BID PRN 02/28/21 [History] Pregabalin [Lyrica] 200 mg PO TID 02/28/21 [History] clonazePAM [KlonoPIN] 0.5 mg PO HS 02/28/21 [History] Butalbital-Acetaminophn 50-325 1 tab PO DAILY 03/23/22 [History] Cholecalciferol [Vitamin D3 (25 Mcg = 1000 Iu)] 50 mcg PO DAILY 03/23/22 [History] Tamsulosin [Flomax] 0.4 mg PO HS 03/23/22 [History] Cetirizine HCl [Zyrtec] 10 mg PO DAILY #30 tab 03/26/22 [Rx] Nicotine 21Mg/24Hr Patch [Habitrol] 1 patch TRANSDERM DAILY #30 patch 03/26/22 [Rx] Follow up Appointment(s)/Referral(s): Coco Grider MD [Primary Care Provider] - 04/03/22 9:00 am Jakub Morton DO [STAFF PHYSICIAN] - 04/03/22 4:45 pm Patient Instructions/Handouts: Nicotine (Absorbed through the skin), Cetirizine (By mouth), How to Stop Smoking (DC), After Radial Heart Catheterization (GEN) Discharge Disposition: HOME SELF-CARE
--- NOTE | 2022-03-26 10:45 | P.PN ---
Subjective Progress Note Date: 03/26/22 HISTORY OF PRESENT ILLNESS: This is a pleasant 61 year old male with history of coronary artery calcifications by prior CT, history of DVT, hypertension, hyperlipidemia, pulmonary embolism. He does have strong family history of CAD. He has been dealing with back surgery and back pain and admits she is scheduled for back surgery in approximately 1-2 months. He presented with episodes of feeling nauseous and some epigastric pain. He denies any diarrhea however started throwing up and could not keep any food down. He states this occurred on and came to emergency department and initial troponin 0.029. He then had been feeling somewhat better and was discharged home however had recurrence of the nausea and vomiting and troponinselevated at 0.1, 0.2, 0.28, 0.285. He denies any chest pain or pressure. He has chronic back pain however is more positional. He denies any shortness of breath. He does have occasional episodes of diaphoresis however nothing changed from prior. He does follow with Dr. Zhou and states he had a CT calcium score with score in the 3000s and therefore a stress test was performed which showed no inducible ischemia per patient. Denies seeing a police justice. CT abdomen and pelvis showed no acute process, no aneurysm. 03/26/2022 Patient is status post cardiac catheterization revealing 10-30% luminal irregul arities otherwise normal coronary arteries. Echocardiogram performed revealing ejection fraction 55-60%. Patient denies any chest pain or pressure. He denies shortness of breath. Vital signs are stable. PHYSICAL EXAM: VITAL SIGNS: Reviewed. GENERAL: Well-developed in no acute distress. NECK: Supple. No JVD or thyromegaly LUNGS: Respirations even and unlabored. Lungs essentially clear to auscultation bilaterally. HEART: Regular rate and rhythm. S1 and S2 heard. EXTREMITIES: Normal range of motion. No clubbing or cyanosis. Peripheral pulses intact. No lower extremity edema ASSESSMENT: 1. NSTEMI, s/p cardiac cath revealing normal coronary arteries, Obstructive CAD ruled out 2. Coronary artery calcifications 3. Family history of CAD 4. Nausea and vomiting, appears to have improved PLAN: Resume Xarelto Continue additional cardiac medications Patient is stable for discharge home today from a cardiac standpoint Nurse practitioner note has been reviewed by physician. Signing provider agrees with the documented findings, assessment, and plan of care. Objective - Vital Signs Vital signs: Vital Signs Temp 98.3 F 03/26/22 09:10 Pulse 55 L 03/26/22 09:10 Resp 17 03/26/22 09:10 BP 105/67 03/26/22 09:10 Pulse Ox 95 03/26/22 09:10 FiO2 Intake & Output 03/25/22 03/26/22 03/26/22 18:59 06:59 18:59 Intake Total 290 480 240 Balance 290 480 240 Intake: IV 50 Oral 240 480 240 Other: Voiding Method Toilet Toilet # Voids 2 - Labs CBC & Chem 7: 03/25/22 05:57 03/26/22 07:03 Labs: Abnormal Lab Results - Last 24 Hours (Table) 03/26/22 Range/Units 07:03 Sodium 136 L (137-145) mmol/L Potassium 3.3 L (3.5-5.1) mmol/L Carbon Dioxide 31 H (22-30) mmol/L BUN 5 L (9-20) mg/dL Calcium 8.1 L (8.4-10.2) mg/dL
[2022-03-26] MEDS ORDERED: RIVAROXABAN 20 MG TAB PO SCH (17:30)
== END 2022-03-26 11:32 | disposition home or self-care (01) | DRG 392 ==
LOC: EC 12:58 → 3SCARD 15:44 → OBSVTOIN 03-25 08:01
PROVIDERS: ADMIT Internal Medicine; ATTEND Internal Medicine
PROC: B2111ZZ Fluoroscopy of Multiple Coronary Arteries using Low Osmolar Contrast (ICD-10-PCS; 2022-03-25)
PROC: B2151ZZ Fluoroscopy of Left Heart using Low Osmolar Contrast (ICD-10-PCS; 2022-03-25)
PROC: 4A023N7 Measurement of Cardiac Sampling and Pressure, Left Heart, Percutaneous Approach (ICD-10-PCS; principal; 2022-03-25 09:30)
DX: R11.2 Nausea with vomiting, unspecified (principal); I10 Essential (primary) hypertension; E78.5 Hyperlipidemia, unspecified; K21.9 Gastro-esophageal reflux disease without esophagitis; I25.10 Atherosclerotic heart disease of native coronary artery without angina pectoris; F17.210 Nicotine dependence, cigarettes, uncomplicated; G89.29 Other chronic pain; Z79.01 Long term (current) use of anticoagulants; Z79.899 Other long term (current) drug therapy; Z88.5 Allergy status to narcotic agent; Z86.718 Personal history of other venous thrombosis and embolism; Z86.711 Personal history of pulmonary embolism; Z82.49 Family history of ischemic heart disease and other diseases of the circulatory system; Z95.828 Presence of other vascular implants and grafts; Z79.82 Long term (current) use of aspirin
CPT/HCPCS: 36415; 71046; 71275; 74018; 74174; 80048; 80053; 80061; 82150; 83690; 83880; 84484; 85025; 85610; 85730; 93306; 93458; 94760; 96361; 96374; 96375; 99285

== ENCOUNTER → 2022-04-23 | Outpatient (CLI) | payer BC ==
--- NOTE | 2022-04-23 12:45 | US ---
EXAMINATION TYPE: US gallbladder DATE OF EXAM: 04/23/2022 COMPARISON: CT/ US CLINICAL HISTORY: R10.13 epigastric pain. Pt states episodes of uncontrolled vomiting TECHNIQUE: Multiple sonographic images of the right upper quadrant are obtained. FINDINGS: EXAM MEASUREMENTS: Liver Length: 16.6 cm Gallbladder Wall: 0.2 cm CBD: 0.4 cm Right Kidney: 11.2 x 5.7 x 5.6 cm DRAFTER GEOLOGICAL NOTES: Limited visualization due to overlying bowel gas Pancreas: Obscured by bowel gas Liver: Visualized portions appeared wnl Gallbladder: wnl Evidence for sonographic Nair's sign: No CBD: wnl Right Kidney: wnl, lower pole gassed out IMPRESSION: No evidence of acute intra-abdominal process.
--- NOTE | 2022-04-23 15:33 | NM ---
EXAMINATION TYPE: NM hepatobiliary w EF DATE OF EXAM: 04/23/2022 COMPARISON: NONE HISTORY: Right upper quadrant pain TECHNIQUE: After the intravenous administration of 4.03 mCi Tc 99m Mebrofenin hepatobiliary scintigra phy is performed. Immediate images post injection. FINDINGS: There is satisfactory initial accumulation of tracer by the liver. The gallbladder is visualized wit hin 6 minutes. The small bowel activity is noted within 18 minutes. At one hour 8 ounces of oral en sure plus is given to mimic CCK and gallbladder ejection fraction is calculated at 76 %, in the celso l range. Therefore there is no scintigraphic evidence of cystic or common bile duct obstruction to s uggest acute cholecystitis or gallbladder dyskinesia. IMPRESSION: Exam is within normal limits.
== END | disposition home or self-care (01) ==
LOC: RADUSWWP 11:57
PROVIDERS: ATTEND Internal Medicine
DX: R10.13 Epigastric pain (principal)
CPT/HCPCS: 76705; 78226; A9537